=== PATIENT | female | born 1940 | race Caucasian/White ===

== ENCOUNTER 2020-08-05 14:01 | Inpatient (IN) | payer MEDICARE, SELFPAY ==
[2020-08-05] VITALS (20 sets, daily range): BP systolic 121–197; BP diastolic 66–96; PULSE 71–101; RESP 14–20; TEMP 36.4–37.2; O2SAT 96–100
--- NOTE | ~2020-08-05 | US_ITS ---
US right upper quadrant INDICATION: Limited liver function tests. PROCEDURE: Realtime right upper abdominal ultrasound. COMPARISON: No prior studies for comparison. FINDINGS: The pancreas is normal without focal mass or pancreatic ductal dilation. Liver echotexture is normal without focal mass or intrahepatic biliary dilatation. There is normal directional flow i n the portal vein. Multiple gallstones. No gallbladder wall thickening or pericholecystic fluid. Common bile duct measu res 6 mm. No sonographic Rai's sign. IMPRESSION: 1: Cholelithiasis. Reviewed, dictated and finalized at location A. SPECIALIST IMPRESSION: 1: Cholelithiasis.
--- NOTE | ~2020-08-05 | XR_ITS ---
EXAMINATION: XR chest 1V portable DATE: 08/05/2020 14:35 INDICATION: Shortness of breath and right-sided chest pain TECHNIQUE: frontal view of the chest was obtained. COMPARISON: Chest radiograph dated 07/02/2016 FINDINGS: Subtle patchy airspace opacities in the right mid and left lower lung zones with more streaky opaciti es in the left mid and right lower lung zones. This includes chronic linear atelectasis/scarring at t he lingula. No pleural effusion or pneumothorax. The cardiomediastinal silhouette is normal. Mild S-s haped thoracolumbar scoliosis with moderate to severe spondylosis. IMPRESSION: 1. Mild scattered opacities in the bilateral mid and lower lung zones which could represent pneumonia , atelectasis/scarring, mild pulmonary edema or combination thereof. Reviewed, dictated and finalized at [facility]. OR DESIGNER/ART DIRECTOR IMPRESSION: 1. Mild scattered opacities in the bilateral mid and lower lung zones which cou ld represent pneumonia, atelectasis/scarring, mild pulmonary edema or combinati on thereof.
--- NOTE | 2020-08-05 14:10 | ECG_ITS ---
Measurements Intervals [place] Rate: 91 P: 61 [place]: 182 QRS: -29 QRSD: 101 T: 62 QT: 349 QTc: 431 Interpretive Statements SINUS RHYTHM POSSIBLE LEFT ATRIAL ENLARGEMENT LOW QRS VOLTAGE IN PRECORDIAL LEADS DELAYED PRECORDIAL R/S TRANSITION ANTEROSEPTAL ST ELEVATION MYOCARDIAL INJURY- ACUTE BASELINE WANDER- II, AVL ABNORMAL ECG Electronically Signed On 08-05-2020 17:20:59 CLEANER AND D[employer]ER by Yahir Lord D.O.
--- NOTE | 2020-08-05 14:35 | PC.NURSE ---
Placed patient on 2 Li NC at this time for comfort, NS 1 Li fluid bolus started per stemi orders. Heparin bolus give at 4000 units IVP, verbal order Dr. Xiao. ASA 325 mg given at this time.
--- NOTE | 2020-08-05 14:35 | ED.GENADULT ---
HPI - General Adult General Chief complaint: Chest Pain Stated complaint: possible pneumonia , chest pain Time Seen by Provider: 08/05/20 14:24 History of Present Illness HPI narrative: Patient is a 80-year-old female who presents ER with right-sided chest heaviness. Began around 11 PM last night. When she woke up today she noticed that the discomfort was heavier. It has been persistent throughout the day. She denies any sweats/nausea/vomiting. Pain was 8/10 upon arrival here. No previous CA. Related Data Home Medications Medication Instructions Recorded Confirmed glimepiride mg 08/05/20 quinapril mg 08/05/20 sitagliptin [Januvia] mg 08/05/20 solifenacin mg PO 08/05/20 Allergies Allergy/AdvReac Type Severity Reaction Status Date / Time codeine Allergy Mild FELT LIKE Verified 08/05/20 14:18 SHE HAD CREEPY-CRAWLIES Sulfa (Sulfonamide Allergy Unknown RASH Verified 08/05/20 14:18 Antibiotics) Review of Systems Review of Systems: All systems reviewed & are unremarkable except as noted in HPI and below Constitutional: Constitutional: Denies chills, Denies fever(s) and Denies weakness ENT: Denies nasal congestion and Denies sore throat Cardiovascular: Cardiovascular: Reports chest pain, Denies rapid heart rate and Denies radiating jaw, neck or arm pain Respiratory: Respiratory: Denies cough, Denies dyspnea and Denies wheezing Gastrointestinal: Gastrointestinal: Denies abdominal pain, Denies diarrhea and Denies nausea PMFSH Past Medical History Medical History (Updated 08/05/20 @ 23:23 by Izaiah Xiao MD) Breast cancer Diabetes Hypertension Surgical History Surgical History (Updated 08/05/20 @ 14:52 by Izaiah Xiao MD) H/O lumpectomy History of appendectomy Family History Family History (Updated 08/05/20 @ 19:40 by Gianna Garcia RN) Sibling Hypertension Father Hypertension Mother Hypertension Social History Social History (Updated 08/05/20 @ 14:52 by Izaiah Xiao MD) Smoking status: Never smoker Alcohol intake: never Substance use: never Gender identity (if verbalized by the patient): Female Spiritual care concerns: No Exam Narrative: Exam Narrative: GENERAL: Well-appearing, well-nourished, and in no acute distress. HEAD: Normocephalic, atraumatic. EYES: PERRL and EOMI. CHEST: Clear to auscultation. No respiratory distress. HEART: Regular rate and rhythm. Normal peripheral pulses. ABDOMEN: Soft, nontender, nondistended. EXTREMITIES: Normal range of motion. No edema. SKIN: Warm, dry, no rash. NEURO: Alert and oriented x3. PSYCH: Normal mood and affect. Course Reevaluation(s) Reevaluation #1: STEMI activated, discussed with Dr. Tong who will take pt to agriculture laboratory technician. Date: 08/05/20 Time: 14:51 Reevaluation #2: Dr. Tong arrived, cath team not here, [facility] was not sent out by secretary of police. That has been corrected. Date: 08/05/20 Time: 15:57 Vital Signs Vital signs: Vital Signs Temperature 97.5 F L 08/05/20 14:08 Pulse Rate 93 08/05/20 14:08 Respiratory Rate 14 08/05/20 14:08 Blood Pressure 197/96 H 08/05/20 14:08 Pulse Oximetry 99 08/05/20 14:08 Temperature 98.9 F 08/05/20 19:50 Pulse Rate 84 08/05/20 21:20 Respiratory Rate 16 08/05/20 21:20 Blood Pressure 121/86 08/05/20 21:20 Pulse Oximetry 98 08/05/20 21:20 Medical Decision Making Vital Signs Vital Signs: Vital Signs Temperature 97.5 F L 08/05/20 14:08 Pulse Rate 93 08/05/20 14:08 Respiratory Rate 14 08/05/20 14:08 Blood Pressure 197/96 H 08/05/20 14:08 Pulse Oximetry 99 08/05/20 14:08 Temperature 98.9 F 08/05/20 19:50 Pulse Rate 84 08/05/20 21:20 Respiratory Rate 16 08/05/20 21:20 Blood Pressure 121/86 08/05/20 21:20 Pulse Oximetry 98 08/05/20 21:20 Lab Data Result diagrams: 08/05/20 14:30 08/05/20 14:30 Labs: Lab Results 08/05/20
[2020-08-05 14:44] LABS: Basophils Percent Auto 0.2 % (0.2-1.2); Eosinophils Percent Auto 0.2 % (0-4.4); Hematocrit 46.4 % (37.0-47.0); Immature Granulocyte Absolute 0.02 K/mm3 (0.00-0.031); Immature Granulocyte Percent A 0.2 % (0-0.5); Lymphocytes Absolute Auto 0.93 K/mm3 (0.9-3.2); Lymphocytes Percent Auto 11.1 % (18.3-44.2); Mean Corpuscular HGB Conc 32.3 g/dl (32-36); Mean Corpuscular Hemoglobin 29.6 pg (26-34); Mean Corpuscular Volume 91.5 fl (80-100); Mean Platelet Volume 12.7 fl (7.4-10.4); Monocytes Absolute Auto 0.2 K/mm3 (0.1-0.6); Monocytes Percent Auto 2.3 % (2.6-8.5); Neutrophils Absolute Auto 7.2 K/mm3 (1.3-6.7); Platelet Count Result 129 k/mm3 (150-375); Red Blood Count 5.07 M/mm3 (4.2-5.4); Red Cell Distribution Width 12.3 % (11.5-14.5); White Blood Count 8.4 K/mm3 (4.5-10.0)
[2020-08-05] MEDS: ASPIRIN 81 MG CHEWABLE TABLET 324 MG PO (14:53)
[2020-08-05 14:54] LABS: Cholesterol 188 mg/dL (0-200); HDL Direct 58 mg/dL; Triglycerides 139 mg/dL (<150)
--- NOTE | 2020-08-05 14:54 | PC.NURSE ---
Patient states after dose of nitro SL 0.4 chest pain decreased from a 6/10 to 2/10.
[2020-08-05 14:56] LABS: Anion Gap 11 mmol/L (8-16); Blood Urea Nitrogen 21 mg/dL (7-17); Calcium 9.4 mg/dL (8.4-10.2); Carbon Dioxide 29 mmol/L (22-30); Chloride 100 mmol/L (98-107); Estimated Glomerular Filt Rate 48; Glucose 309 mg/dL (65-105); Potassium 4.1 mmol/L (3.4-5.0); Sodium 140 mmol/L (137-145)
[2020-08-05 14:58] LABS: INR 0.9; Prothrombin Time 12.9 Seconds (11.1-14.7)
[2020-08-05 14:59] LABS: Partial Thromboplastin Time 24.5 SECONDS (22.3-36.8)
[2020-08-05 15:05] LABS: LDL Cholesterol Direct 102 mg/dL
[2020-08-05 15:10] LABS: Troponin I 0.359 ng/mL (0.000-0.034)
[2020-08-05 15:41] LABS: Lactic Acid Reflex 2.7 mmol/L (0.7-2.1)
--- NOTE | 2020-08-05 15:54 | PM.IMHP ---
H&P: HPI History of Present Illness Date/Time: 08/05/20 15:54 Chief complaint: Stemi Narrative: Tonya Scherer is a 80 year old female without previous history of cardiovascular problems who is being seen in the emergency room in the setting of acute ST-elevation [place]. The patient was in her usual state of relatively good health when last evening about 11:00 p.m. or so as she had just was preparing to go to bed she started to experience chest pain. She describes this as a pressure-like sensation and the right precordium just lateral to the right side of the sternum and the discomfort was [id number] in intensity. She was not feeling ill in any other way denies any shortness of breath nausea or vomiting this morning she got up from bed in the symptoms were still there and she was a little bit diaphoretic she therefore was a bit more concerned. Unfortunately she stated home until this afternoon and finally came into the emergency room where her ECG appears to show evidence of anterior wall infarction. Her symptoms were described over the phone to me by the ER doctor is still quite mild. When I heard about the case it seemed like a very late presentation, about 15 hours into the event despite this very late presentation and mild persistent symptoms bring her to the prestressed concrete laborer for emergency angiography and PCI was recommended and I was summoned for this purpose. I am seeing her in the emergency room as the prestressed concrete laborer is being prepared. She appears to be in no significant distress in fact when I came in to see her she was talking on the cell phone to her family members who are not here at this time. Her past medical history is remarkable for hypertension and resection of breast cancer. Review of Systems Review of Systems: All systems reviewed & are unremarkable except as noted in HPI and below Constitutional: Constitutional: Reports no additional constitutional complaints Eyes: Eyes: Reports no additional eye complaints ENT: Reports system reviewed and no additional complaints, except as documented Cardiovascular: Cardiovascular: Reports as per HPI Respiratory: Respiratory: Reports no additional respiratory complaints Gastrointestinal: Gastrointestinal: Reports no additional gastrointestinal complaints Musculoskeletal: Musculoskeletal: Reports no additional musculoskeletal complaints Integumentary/Breasts: Skin/Breast: Reports as per HPI Neurologic: Reports system reviewed and no additional complaints, except as documented [facility] Past Medical History Medical History (Updated 08/05/20 @ 14:51 by Izaiah Xiao MD) Breast cancer Diabetes Hypertension Surgical History Surgical History (Updated 08/05/20 @ 14:52 by Izaiah Xiao MD) H/O lumpectomy History of appendectomy Social History Social History (Updated 08/05/20 @ 14:52 by Izaiah Xiao MD) Smoking status: Never smoker Meds Home Medications and Allergies Home Medications Medication Instructions Recorded Confirmed Type glimepiride mg 08/05/20 History quinapril mg 08/05/20 History sitagliptin [Januvia] mg 08/05/20 History solifenacin mg PO 08/05/20 History Allergies Allergy/AdvReac Type Severity Reaction Status Date / Time codeine Allergy Mild FELT LIKE Verified 08/05/20 14:18 SHE HAD CREEPY-CRAWLIES Sulfa (Sulfonamide Allergy Unknown RASH Verified 08/05/20 14:18 Antibiotics) Vital Signs Vital Signs - 24 hr 08/05/20 14:08 08/05/20 14:20 08/05/20 14:51 Temperature 36.4 C L Pulse Rate 93 97 96 Respiratory Rate 14 14 Blood Pressure 197/96 H 168/87 H Pulse Oximetry 99 100 08/05/20 15:02 08/05/20 15:16 Temperature Pulse Rate 101 H 100 Respiratory Rate 16 18 Blood Pressure 158/94 H 169/89 H Pulse Oximetry 100 100 H&P: Results Labs Labs: Short CBC 08/05/20 Range/Units 14:30 WBC 8.4 (4.5-10.0) K/mm3 Hgb 15.0 (12.0-15.0) g/dL Hct 46.4 (37.0-47.0) % Plt Count 129 L
[2020-08-05 16:04] LABS: Glucose Point of Care 259 (65-105)
--- NOTE | 2020-08-05 16:20 | PC.NURSE ---
Patient transferred to cardiac collaborative physician at this time. Report given to collaborative physician nurses at bedside.
--- NOTE | 2020-08-05 17:28 | WPDCARDPROC ---
Cardiac Cath Procedure Note Date of procedure:: 08/05/20 Performing physician:: Clifford Tong MD Indication:: acute myocardial infarction Brief clinical history:: this is an 80-year-old woman who presented to the hospital with chest pain that began about 15 hours prior to presentation this evening. Her electrocardiogram is diagnostic of an acute anterior ST-elevation [place]. Previous medical history is remarkable for hypertension and breast cancer. Procedure Procedure performed:: Emergency coronary angiography emergency PCI to LAD left ventriculography Angio-Seal to right femoral artery Sedation/Medication given:: fentanyl 50 mg Versed 2 mg case start time 4:35 p.m. case end time 17 18 hours sedation provided by Violeta Fontanez RN, trained observer Access site:: right femoral artery Estimated blood loss:: 15-20 cc Procedure note:: patient was brought to the cardiac catheterization lab in the emergency setting. The right femoral triangle was prepared and draped in the usual fashion. Anesthesia was provided with 1% lidocaine infiltrated locally. Using the modified Seldinger technique I punctured the femoral artery and placed a 6 [place] vascular sheath. After this I used a 5 [place] JR4 catheter to engage inject the right coronary artery. After this a 5 [place] FL4 catheter was used to engage inject the left coronary artery. This any angiograms were then reviewed and the PCI of the proximal LAD was recommended and carried out as detailed below. Prior to PCI the patient received 180 mg oral Brilinta and was started on intravenous Angiomax bolus and infusion for systemic anticoagulation. The intervention was then completed and a 5 [place] angled pigtail catheter was used to perform a left ventriculogram in the RHODES projection as well as documented left-sided hemodynamics. The case was then terminated angiogram was done of the femoral artery through the sheath after which a 6 [place] Angio-Seal device was deployed at the site of the arterial puncture with a good hemostatic result. Procedure was well tolerated there were no complications she left the labeling strategist with no evidence of a groin hematoma. Findings:: Hemodynamics: Central aortic pressure is 166/74. Left ventricle 166/4 end-diastolic pressure 32. There is no pullback gradient across the aortic valve. Left ventriculogram: Left ventricle is mildly enlarged the anterior wall is akinetic the apex is dyskinetic the global ejection fraction is in the vicinity of 35%. The left main coronary artery is nicely patent the LAD is a medium caliber vessel that is 100% occluded at its origin there is a small stump of the LAD visible off the left main the remainder of the vessels 100% occluded with no antegrade filling circumflex is a large caliber vessel giving rise to a large proximal OM branch and a more distal AV groove and posterior branch. There was no significant circumflex disease. The large OM branch has a stenosis of about 50% proximally. Right coronary artery is large in caliber and dominant to the posterior circulation it is extremely tortuous but angiographically free of disease. Intervention: The left coronary artery was engaged using a 6 [place] CLS 3.5 guiding catheter. I used a 0.014 BMW guidewire to probe the occlusion and penetrate the occlusion into the distal LAD. Following this I used a 2.5 x 15 mm emerge PTCA balloon to pre dilate the lesion. Once flow was restored in the LAD was clear that the guidewire was in a septal branch in the mid LAD. I attempted to redirect this wire into the LAD proper which was not successful for that reason I used a 0.014 luge wire while the BMW was in the septal and directed the luge wire into the distal LAD. The BMW wire was then withdrawn. there was a angiographic evidence of spasm in this area of the vessel which was resolved with 200 mics of IC nitroglycerin. Following this I finish the intervention by ton
--- NOTE | 2020-08-05 17:47 | PC.NURSE ---
This patient, Tonya Scherer, was admitted to IMU Room 232-01. Patient/family oriented to hospital policies and general routines including ID bracelet, bed and alarms, visiting hours, pain management, procedures, bathroom and other care routines, personal items, smoking policy, room service/diet, and visiting hours. Information on how to activate the Rapid Response Team has been discussed. Patient/Family are encouraged to report perceived risks to care and to ask questions if they do not understand what they are told or what they should do.
[2020-08-05 18:28] LABS: Reflex Lactic Acid Yes or No Add Lactic
[2020-08-05] MEDS: SODIUM CHLORIDE 0.9% IV 1,000 ML 125 ML IV CONT (18:28)
[2020-08-05 18:33] LABS: Cholesterol 161 mg/dL (0-200); HDL Direct 47 mg/dL; Triglycerides 118 mg/dL (<150)
[2020-08-05 18:33] LABS: Glucose Point of Care 228 (65-105)
[2020-08-05 18:44] LABS: LDL Cholesterol Direct 89 mg/dL
[2020-08-05 18:47] LABS: Troponin I > 80.000 ng/mL (0.000-0.034)
--- NOTE | 2020-08-05 20:48 | PC.NURSE ---
Patient arrived to floor with cardiac cath staff at 1747 post cardiac-cath. Dressing to right groin assessed, and found to be dry and intact, with a small palpable hematoma. Right pedal pulse palpated +1, toes warm. Patient denies chest pain. When groin assessed at 1845 dressing was found to be saturated, and pressure was applied. Dr. Brennan notified after pressure was unsuccessful, at approximately 1900. Order obtained for Femstop to be applied by cardiac cath staff, and for patient to remain on bedrest until seen by cardiology the following day, 08/06/20. Patient remained alert x3, without complaints of chest pain or shortness of breath. Will continue to monitor closely.
[2020-08-05] MEDS: carvediloL 6.25 MG TABLET PO (21:04)
[2020-08-05] MEDS: TICAGRELOR 90 MG TABLET PO (21:04)
[2020-08-05 22:16] LABS: Troponin I > 80.000 ng/mL (0.000-0.034)
[2020-08-05 22:57] LABS: Glucose Point of Care 200 (65-105)
[2020-08-05] MEDS: MORPHINE SULFATE (*CRX) 2 MG/ML INJ IV PUSH (23:22)
[2020-08-06] VITALS (19 sets, daily range): BP systolic 104–146; BP diastolic 42–67; PULSE 67–84; RESP 14–99; TEMP 36.2–36.9; O2SAT 97–100
[2020-08-06] MEDS: ZOLPIDEM TARTRATE (*CRX) 5 MG TABLET 10 MG PO (00:25)
--- NOTE | 2020-08-06 05:11 | ECG_ITS ---
Measurements Intervals [place] Rate: 69 P: 51 [place]: 175 QRS: -1 QRSD: 98 T: 116 QT: 409 QTc: 441 Interpretive Statements SINUS RHYTHM BORDERLINE R WAVE PROGRESSION, ANTERIOR LEADS ANTERIOR MYOCARDIAL INFARCT, PROBABLY RECENT ABNORMAL ECG Electronically Signed On 08-06-2020 11:00:22 MANAGER OF EXHIBITIONS AND COLLECTIONS by Yahir Lord D.O.
--- NOTE | 2020-08-06 07:20 | PM.PNCARD ---
Progress Note: A&P Additional Plan 80-year-old female with: Acute anterior wall myocardial infarction, late presentation. Underwent angiographically successful PCI of total occlusion of the proximal LAD using the Orsiro drug-eluting stent with a good angiographic result. Patient does have modest non flow-limiting disease of the large OM branch of the circumflex as well. Right coronary artery looked normal. Expect the patient have a sizable anterior wall scar as she presented late, 15-16 hours into the event by history. Will continue dual anti-platelet therapy today continue carvedilol lisinopril and rosuvastatin. Patient will come off of bed rest and be ambulated this morning. Told her to expect to be in the hospital until at least Thursday because of the large infarction Clifford Tong MD [facility] Subjective Date/time seen: Date of service:08/06/20 07:20 Interval history: 80-year-old female with: Acute anterior wall myocardial infarction, late presentation and successful PCI of proximal LAD occlusion. Expect patient will have a large infarction because of late presentation clinically stable is morning no chest pain no shortness of breath. Has a Femstop on the right femoral puncture site because of oozing last evening. Exam Const: General: comfortable and no acute distress HENMT: Mouth: Yes moist mucous membranes Eyes: Sclera: sclerae normal Pupils: Equal, round and reactive pupils present Neck: Neck: supple and no JVD Thyroid: thyroid normal Other: No carotid bruits normal pulses Resp: Effort & Inspection: normal respiratory effort Auscultation: clear to auscultation bilaterally Cardio: Rate: regular rate Rhythm: regular rhythm Other: no murmur no gallop no rub GI: GI Palp: Yes Soft to palpation Auscultation: normal bowel sounds Skin: General skin exam: normal color Neuro: Cognition (Neuro): normal cognition Extrem: General: normal to inspection Objective Data Vital Signs Vital Signs: Vital Signs - 24 hr 08/05/20 14:08 08/05/20 14:20 08/05/20 14:51 Temperature 36.4 C L Pulse Rate 93 97 96 Respiratory Rate 14 14 Blood Pressure 197/96 H 168/87 H Pulse Oximetry 99 100 08/05/20 15:02 08/05/20 15:16 08/05/20 16:12 Temperature Pulse Rate 101 H 100 98 Respiratory Rate 16 18 16 Blood Pressure 158/94 H 169/89 H 177/82 H Pulse Oximetry 100 100 100 08/05/20 17:50 08/05/20 18:06 08/05/20 18:31 Temperature Pulse Rate 91 91 87 Respiratory Rate 20 20 20 Blood Pressure 146/67 H 132/67 Pulse Oximetry 96 96 96 08/05/20 18:45 08/05/20 19:05 08/05/20 19:20 Temperature 36.9 C Pulse Rate 86 83 88 Respiratory Rate 20 18 18 Blood Pressure 142/67 H 153/87 H 151/77 H Pulse Oximetry 96 98 98 08/05/20 19:50 08/05/20 20:00 08/05/20 20:20 Temperature 37.2 C Pulse Rate 85 82 86 Respiratory Rate 18 17 Blood Pressure 163/73 H 141/66 H Pulse Oximetry 99 99 08/05/20 21:04 08/05/20 21:20 08/05/20 22:00 Temperature Pulse Rate 83 84 88 Respiratory Rate 16 Blood Pressure 121/86 Pulse Oximetry 98 08/05/20 22:20 08/05/20 23:20 08/06/20 00:00 Temperature 36.3 C L Pulse Rate 72 71 69 Respiratory Rate 16 16 16 Blood Pressure 146/87 H 121/87 104/67 Pulse Oximetry 98 97 98 08/06/20 00:12 08/06/20 00:20 08/06/20 02:00 Temperature 36.3 C L Pulse Rate 70 71 76 Respiratory Rate 16 16 16 Blood Pressure 104/67 144/64 H 121/59 L Pulse Oximetry 98 97 98 08/06/20 03:06 08/06/20 04:00 08/06/20 06:00 Temperature 36.2 C L Pulse Rate 78 74 73 Respiratory Rate 14 99 H 16 Blood Pressure 146/66 H 135/57 L 144/59 H Pulse Oximetry 98 99 100 Intake/Output Intake/Output: Intake & Output 08/03/20 08/04/20 08/05/20 08/06/20 23:59 23:59 23:59 23:59 Output Total 200 950 Balance -200 -950 Meds/Results Medications: Active Medications Generic Name Dose Route Start Last Admin Trade Name Freq PRN Reason Stop Dose Admin Aspir
--- NOTE | 2020-08-06 08:28 | WPDCNINT ---
Psychotherapist Social Worker Consult Note Consult date: 08/06/20 HPI: Tonya Scherer is a 80 year old female [facility] Past Medical History Medical History (Updated 08/05/20 @ 23:23 by Izaiah Xiao MD) Breast cancer Diabetes Hypertension Surgical History Surgical History (Updated 08/05/20 @ 14:52 by Izaiah Xiao MD) H/O lumpectomy History of appendectomy Family History Family History (Updated 08/05/20 @ 19:40 by Gianna Garcia RN) Sibling Hypertension Father Hypertension Mother Hypertension Social History Social History (Updated 08/05/20 @ 14:52 by Izaiah Xiao MD) Smoking status: Never smoker Alcohol intake: never Substance use: never Gender identity (if verbalized by the patient): Female Spiritual care concerns: No Meds Home Medications and Allergies Home Medications Medication Instructions Recorded Confirmed Type glimepiride mg 08/05/20 History quinapril mg 08/05/20 History sitagliptin [Januvia] mg 08/05/20 History solifenacin mg PO 08/05/20 History Allergies Allergy/AdvReac Type Severity Reaction Status Date / Time codeine Allergy Mild FELT LIKE Verified 08/05/20 14:18 SHE HAD CREEPY-CRAWLIES Sulfa (Sulfonamide Allergy Unknown RASH Verified 08/05/20 14:18 Antibiotics) Vital Signs Vital Signs - 24 hr 08/05/20 14:08 08/05/20 14:20 08/05/20 14:51 Temperature 97.5 F L Pulse Rate 93 97 96 Respiratory Rate 14 14 Blood Pressure 197/96 H 168/87 H Pulse Oximetry 99 100 08/05/20 15:02 08/05/20 15:16 08/05/20 16:12 Temperature Pulse Rate 101 H 100 98 Respiratory Rate 16 18 16 Blood Pressure 158/94 H 169/89 H 177/82 H Pulse Oximetry 100 100 100 08/05/20 17:50 08/05/20 18:06 08/05/20 18:31 Temperature Pulse Rate 91 91 87 Respiratory Rate 20 20 20 Blood Pressure 146/67 H 132/67 Pulse Oximetry 96 96 96 08/05/20 18:45 08/05/20 19:05 08/05/20 19:20 Temperature 98.5 F Pulse Rate 86 83 88 Respiratory Rate 20 18 18 Blood Pressure 142/67 H 153/87 H 151/77 H Pulse Oximetry 96 98 98 08/05/20 19:50 08/05/20 20:00 08/05/20 20:20 Temperature 98.9 F Pulse Rate 85 82 86 Respiratory Rate 18 17 Blood Pressure 163/73 H 141/66 H Pulse Oximetry 99 99 08/05/20 21:04 08/05/20 21:20 08/05/20 22:00 Temperature Pulse Rate 83 84 88 Respiratory Rate 16 Blood Pressure 121/86 Pulse Oximetry 98 08/05/20 22:20 08/05/20 23:20 08/06/20 00:00 Temperature 97.3 F L Pulse Rate 72 71 69 Respiratory Rate 16 16 16 Blood Pressure 146/87 H 121/87 104/67 Pulse Oximetry 98 97 98 08/06/20 00:12 08/06/20 00:20 08/06/20 02:00 Temperature 97.3 F L Pulse Rate 70 71 76 Respiratory Rate 16 16 16 Blood Pressure 104/67 144/64 H 121/59 L Pulse Oximetry 98 97 98 08/06/20 03:06 08/06/20 04:00 08/06/20 06:00 Temperature 97.1 F L Pulse Rate 78 74 73 Respiratory Rate 14 99 H 16 Blood Pressure 146/66 H 135/57 L 144/59 H Pulse Oximetry 98 99 100 Results Labs CBC & Chem 7: 08/05/20 14:30 08/05/20 14:30 Labs: Short CBC 08/05/20 Range/Units 14:30 WBC 8.4 (4.5-10.0) K/mm3 Hgb 15.0 (12.0-15.0) g/dL Hct 46.4 (37.0-47.0) % Plt Count 129 L (150-375) k/mm3 BMP 08/05/20 14:30 Sodium 140 Potassium 4.1 Chloride 100 Carbon Dioxide 29 BUN 21 H Creatinine 1.10 H Glucose 309 H Calcium 9.4 Cardiac Enzymes 08/05/20 08/05/20 08/05/20 Range/Units 14:30 18:16 21:32 Troponin I 0.359 H* > 80.000 H* D > 80.000 H* (0.000-0.034) ng/mL
--- NOTE | 2020-08-06 08:28 | WPDCNINT ---
Assessment and Plan Assessment and plan (1) ST elevation (STEMI) myocardial infarction: Code(s): I21.3 - ST elevation (STEMI) myocardial infarction of unspecified site <Nichelle Colon PA-C - Last Filed: 08/06/20 09:44> Status: Acute <Nichelle Colon PA-C - Last Filed: 08/06/20 09:44> Assessment and Plan: Status post cardiac catheterization 08/05/20 -stenting to the proximal LAD -large area of anterior apical akinesia and global ejection fraction around 35% -chest x-ray noted, likely pulmonary edema. Do not suspect infection at this time. Normal white count, no cough -insertion site right femoral artery with femstop overnight due to oozing now with statseal. -overnight she had slight reoccurance of chest pressure but not like it was prior to coming into the hospital -tele reviewed, occasional PVCs. Normal sinus rhythm -lipid panel reviewed, LDL 89. -continue carvedilol, lisinopril,rosvustatin, spironolactone, and aspirin <Nichelle Colon PA-C - Last Filed: 08/06/20 09:44> (2) Diabetes: Code(s): E11.9 - Type 2 diabetes mellitus without complications <Nichelle Colon PA-C - Last Filed: 08/06/20 09:44> Status: Inactive <Nichelle Colon PA-C - Last Filed: 08/06/20 09:44> Assessment and Plan: Last glucose 200 -will continue sliding scale insulin -reports last A1c <7 -draw A1c, consider Lantus if she continues to run high -continue to hold home oral diabetes medications (on glipizide 2 mg and 100 mg of Januvia at home) <Nichelle Colon PA-C - Last Filed: 08/06/20 09:44> (3) Hypertension: Code(s): I10 - Essential (primary) hypertension <Nichelle Colon PA-C - Last Filed: 08/06/20 09:44> Status: Inactive <Nichelle Colon PA-C - Last Filed: 08/06/20 09:44> Assessment and Plan: Last blood pressure 144/59 -continue carvedilol, lisinopril, and spironolactone at this time <Nichelle Colon PA-C - Last Filed: 08/06/20 09:44> (4) Breast cancer: Code(s): C50.919 - Malignant neoplasm of unspecified site of unspecified female breast <Nichelle Colon PA-C - Last Filed: 08/06/20 09:44> Status: Acute <Nichelle Colon PA-C - Last Filed: 08/06/20 09:44> Assessment and Plan: Treated in 2018, no known recurrence at this time -follows and Dr. 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 Greene <Nichelle Colon PA-C - Last Filed: 08/06/20 09:44> I have seen and evaluated the patient and discussed the care with WILBER Deshpande. I agree with the findings and plan as documented the note above <Candice Greene MD - Last Filed: 09/11/20 14:16> Portable Track Crew Chief Consult Note Consult date: 08/06/20 <Nichelle Colon PA-C - Last Filed: 08/06/20 09:44> 09/11/20 <Candice Greene MD - Last Filed: 09/11/20 14:16> Time Seen: 09:00 <Nichelle Colon PA-C - Last Filed: 08/06/20 09:44> HPI: Tonya Scherer is a 80 year old female with a past medical history of diabetes and hypertension who presented emergency room with chest pressure. The patient states the pressure started on Thursday but was mild and came and went. She said it got worse on Thursday and she noticed it more when she was pulling the trash cans to her house. On Thursday, she said the pressure would not go away and she noticed 1 episode of diaphoresis. She never had any jaw pain or arm pain with this. She did have slight shortness of breath but nothing significant. She denies cough. She says she has diarrhea on and off but has not had any recently and denies dysuria.
[2020-08-06 08:39] LABS: Glucose Point of Care 231 (65-105)
[2020-08-06] MEDS: TICAGRELOR 90 MG TABLET PO ×2 (09:05→20:54)
[2020-08-06] MEDS: PANTOPRAZOLE 40 MG TABLET PO (09:05)
[2020-08-06] MEDS: ROSUVASTATIN 10 MG TABLET PO (09:05)
[2020-08-06] MEDS: carvediloL 6.25 MG TABLET PO ×2 (09:06→20:54)
[2020-08-06] MEDS: INSULIN ASPART (*BKC) 100 UNITS/ML SUB-Q ×2 (09:06→18:42)
[2020-08-06] MEDS: lisinopriL 10 MG TABLET PO (09:06)
[2020-08-06] MEDS: SPIRONOLACTONE 25 MG TABLET PO (09:06)
[2020-08-06] MEDS: ASPIRIN 81 MG CHEWABLE TABLET PO (09:08)
[2020-08-06 10:03] LABS: Hematocrit 40.7 % (37.0-47.0); Hemoglobin 13.3 g/dL (12.0-15.0); Mean Corpuscular HGB Conc 32.7 g/dl (32-36); Mean Corpuscular Hemoglobin 29.4 pg (26-34); Mean Corpuscular Volume 89.8 fl (80-100); Mean Platelet Volume 12.4 fl (7.4-10.4); Platelet Count Result 107 k/mm3 (150-375); Red Blood Count 4.53 M/mm3 (4.2-5.4); Red Cell Distribution Width 12.3 % (11.5-14.5); White Blood Count 9.1 K/mm3 (4.5-10.0)
[2020-08-06 10:15] LABS: Alanine Aminotransferase 50 U/L (4-35); Albumin Level 3.4 g/dL (3.5-5.1); Alkaline Phosphatase 73 U/L (38-126); Anion Gap 10 mmol/L (8-16); Aspartate Amino Transferase 321 U/L (14-36); Blood Urea Nitrogen 18 mg/dL (7-17); Calcium 8.5 mg/dL (8.4-10.2); Carbon Dioxide 20 mmol/L (22-30); Chloride 106 mmol/L (98-107); Estimated Glomerular Filt Rate > 60; Glucose 211 mg/dL (65-105); Potassium 3.9 mmol/L (3.4-5.0); Sodium 136 mmol/L (137-145)
[2020-08-06 10:18] LABS: Hemoglobin A1C 6.2 % (<5.7)
[2020-08-06 11:59] LABS: Glucose Point of Care 193 (65-105)
--- NOTE | 2020-08-06 12:29 | PM.IMCN ---
Assessment and Plan Assessment and plan (1) ST elevation (STEMI) myocardial infarction: Code(s): I21.3 - ST elevation (STEMI) myocardial infarction of unspecified site Status: Acute Assessment and Plan: S/p catheterization. Supportive care Follow Cardiology recs. (2) Breast cancer: Code(s): C50.919 - Malignant neoplasm of unspecified site of unspecified female breast Status: Acute Assessment and Plan: On remission Follow up in the outpatient setting. (3) T2DM (type 2 diabetes mellitus): Code(s): E11.9 - Type 2 diabetes mellitus without complications Status: Acute Assessment and Plan: Calorie restricted diet Accucheks ACHS ISS as needed Holding oral hypoglycemics. (4) HTN (hypertension): Code(s): I10 - Essential (primary) hypertension Status: Acute Assessment and Plan: Stable Restart home meds Continue to monitor. HPI Data of Consult Consult date: 08/06/20 Requesting Physician: Clifford Tong MD Primary Care Provider: Ry Cruz, Consult Narrative Narrative: Tonya Scherer is a 80 year old female with PMHx significant for T2DM, diet and oral hypoglycemics controlled, HTN. Patient presented to ED due to ongoing chest pain that started the day before, localized to the epigastric area, states like and elephant sitting on my chest, patient had been doing yard work earlier in the day, she has been in her usual state of health prior to this, no fevers, no rigors, no chills, no n/v/abdominal pain, no leg swelling, no claudication, no pnd, no orthopnea, no chest pain with activity. Pain did not go away and decide to come to ED. Patient was found to have anterolateral acute CT and was rushed to research laboratory manager now she is s/p drug eluting stent placement. Review of Systems Review of Systems: Narrative: Persistent chest pain. Constitutional: Comments: no fevers, no rigors, no chills. Eyes: Comments: No vision changes. ENT: Comments: no ears ache, no throat pain, no nasal discharge or congestion. Cardiovascular: Comments: Chest pain. Respiratory: Comments: no cough, no sputum production. Gastrointestinal: Comments: no n/v/abdominal pain. Musculoskeletal: Comments: No muscle aches or pain. Integumentary/Breasts: Comments: no rashes. Neurologic: Comments: no sensory motor deficit. Hematologic/Lymphatic: Comments: No LAP. PMFSH Past Medical History Medical History Breast cancer Diabetes Hypertension Overactive bladder Surgical History Surgical History (Updated 08/05/20 @ 14:52 by Izaiah Xiao MD) H/O lumpectomy History of appendectomy Family History Family History (Updated 08/05/20 @ 19:40 by Gianna Garcia RN) Sibling Hypertension Father Hypertension Mother Hypertension Social History Social History (Updated 08/06/20 @ 09:42 by Nichelle Colon PA-C) Social History: Patient is a lifelong nonsmoker. She denies drug or alcohol use. Her surrogate decision maker would be her daughter Jaz Saravia if needed Smoking status: Never smoker Alcohol intake: never Substance use: never Gender identity (if verbalized by the patient): Female Spiritual care concerns: No Meds Home Medications and Allergies Home Medications Medication Instructions Recorded Confirmed Type glimepiride 2 mg PO DAILY 08/05/20 08/06/20 History quinapril 40 mg PO DAILY 08/05/20 08/06/20 History sitagliptin [Januvia] 100 mg PO DAILY 08/05/20 08/06/20 History solifenacin 10 mg PO DAILY 08/05/20 08/06/20 History Allergies Allergy/AdvReac Type Severity Reaction Status Date / Time codeine Allergy Mild FELT LIKE Verified 08/05/20 14:18 SHE HAD CREEPY-CRAWLIES Sulfa (Sulfonamide Allergy Unknown RASH Verified 08/05/20 14:18 Antibiotics) Vital Signs Vital Signs - 24 hr 08/05/20 14:08 08/05/20 14:20 08/05/20 14:51 Tem
[2020-08-06 13:16] LABS: Hepatitis B Surface Antigen Negative (Negative)
[2020-08-06 13:22] LABS: HAV RESULT Negative (Negative); Hepatitis B Core IgM Result Negative (Negative)
[2020-08-06 13:33] LABS: Hepatitis C Virus Antibody Negative (Negative)
[2020-08-06 16:34] LABS: Glucose Point of Care 208 (65-105)
[2020-08-06 20:55] LABS: Glucose Point of Care 101 (65-105)
[2020-08-07] VITALS (15 sets, daily range): BP systolic 123–140; BP diastolic 45–54; PULSE 66–98; RESP 14–18; TEMP 36.1–36.7; O2SAT 97–100
--- NOTE | 2020-08-07 | ECHO_ITS ---
Patient Info Name: Tonya Scherer Age: 80 years : 1940 Gender: Female Ht: 57 in Wt: 126 lbs BSA: 1.54 m2 HR: 76 bpm BP: 140 / 54 mmHg Exam Date: 08/07/2020 10:53 AM Exam Location: [facility] Patient Status: Inpatient Admit Date: 08/05/2020 Staff Ordering Physician: Chip Graham MD Plant Protection Officer: Lina Gutierrez RDCS Attending Provider: Clifford Tong MD Exam Type: CA echo dop color flow w con Study Info Indications I23.8 - Other current complications following acute myocardial infarction Complete two-dimensional, color flow and Doppler transthoracic echocardiogram is performed with contrast to opacify the left ventricle and to improve the deliniation of the left ventricle endocardial borders. Contrast/Agitated Saline Contrast/Ag. Saline: Definity Amount: 1.00 ml Summary 1. Echo contrast was used for endocardial delineation. Normal LV size, sigmoid hypertrophy, mild LV systolic dysfunction with segmental wall motion abnormalities; LVEF 45-50%. Anteroseptal, mid anterior and apical segments severely hypokinetic to akinetic. No LV apical thrombus is visualized. Grade 1 diastolic dysfunction. Mild left enlargement. Mild mitral annular calcification, trace MR. Aortic valve sclerosis, mild stenosis, valve area 2.1 cm2. Trace AI. Mild pulmonary hypertension, RVSP 41 mmHg, trace TR. Sinus rhythm. Left Ventricle Left ventricular systolic function is mildly reduced, estimated at 45-50%. There is no increased left ventricular wall thickness. The left ventricular diastolic function is grade I diastolic dysfunction. There is no thrombus visualized in the left ventricle. Right Ventricle Right ventricular chamber dimension is normal. Right ventricular systolic function is normal. Left Atria Left atrial chamber dimension is mildly enlarged. Right Atria Right atrial chamber dimension is normal. Aortic Valve There is mild aortic valve sclerosis. There is mild aortic valve stenosis with a peak velocity of 172.37 cm/s, mean gradient of 7 mmHg, and aortic valve area of 2.14 cm2. There is trace aortic valve regurgitation. Pulmonic Valve The pulmonic valve is not well visualized. Mitral Valve There is trace mitral valve regurgitation. There is mild mitral valve calcification. Tricuspid Valve The tricuspid valve leaflets are normal. There is trace tricuspid valve regurgitation. Mild pulmonary hypertension, estimated pulmonary arterial systolic pressure is 36 mmHg. Pericardium/Pleural The pericardium appears epicardial fat pad. Inferior Vena Cava Normal inferior vena cava with >50% collapse upon inspiration consistent with Empty right atrial pressure, 10 mmHg. Aorta The aortic root size at the sinus of Valsalva is normal. Left Ventricular Outflow Tract Name Value Normal LVOT 2D LVOT Diameter 1.88 cm LVOT Doppler LVOT Peak Velocity 124.93 cm/s LVOT Peak Gradient 6 mmHg LVOT Mean Gradient 4 mmHg LVOT VTI 27.50 cm LVOT VTI/AV VTI Ratio
[2020-08-07 05:25] LABS: Hematocrit 31.3 % (37.0-47.0); Hemoglobin 10.4 g/dL (12.0-15.0)
[2020-08-07 05:48] LABS: Alanine Aminotransferase 34 U/L (4-35); Alkaline Phosphatase 57 U/L (38-126); Anion Gap 6 mmol/L (8-16); Aspartate Amino Transferase 128 U/L (14-36); Bilirubin,Total 0.7 mg/dL (0.2-1.3); Blood Urea Nitrogen 22 mg/dL (7-17); Calcium 8.2 mg/dL (8.4-10.2); Carbon Dioxide 23 mmol/L (22-30); Chloride 110 mmol/L (98-107); Estimated Glomerular Filt Rate 43; Glucose 137 mg/dL (65-105); Potassium 3.8 mmol/L (3.4-5.0); Sodium 139 mmol/L (137-145)
[2020-08-07] MEDS: SPIRONOLACTONE 25 MG TABLET PO (09:07)
[2020-08-07] MEDS: ROSUVASTATIN 10 MG TABLET PO (09:07)
[2020-08-07] MEDS: lisinopriL 10 MG TABLET PO (09:07)
[2020-08-07] MEDS: carvediloL 6.25 MG TABLET PO ×2 (09:07→20:20)
[2020-08-07] MEDS: TICAGRELOR 90 MG TABLET PO ×2 (09:07→20:20)
[2020-08-07] MEDS: PANTOPRAZOLE 40 MG TABLET PO (09:07)
[2020-08-07] MEDS: ASPIRIN 81 MG CHEWABLE TABLET PO (09:09)
--- NOTE | 2020-08-07 09:31 | PM.IMPN ---
Progress Note: A&P Assessment and Plan (1) ST elevation (STEMI) myocardial infarction: Code(s): I21.3 - ST elevation (STEMI) myocardial infarction of unspecified site Status: Acute Assessment and Plan: Status post cardiac catheterization 08/05/20 -stenting to the proximal LAD -large area of anterior apical akinesia and global ejection fraction around 35% -chest x-ray noted, likely pulmonary edema. Do not suspect infection at this time. Normal white count, no cough -insertion site right femoral artery with statseal and no hematoma or bleeding. -No CP overnight -I have asked the nurse to walk her to ensure she has no reoccurrence of CP -tele reviewed, Normal sinus rhythm -lipid panel reviewed, LDL 89. -continue carvedilol, lisinopril,rosvustatin, spironolactone, and aspirin (2) Diabetes: Code(s): E11.9 - Type 2 diabetes mellitus without complications Status: Inactive Assessment and Plan: Last glucose 137 -will continue sliding scale insulin -A1c 6.2 -restart glipizide 2 mg and 100 mg of Januvia at discharge (3) Hypertension: Code(s): I10 - Essential (primary) hypertension Status: Inactive Assessment and Plan: Last blood pressure 140/54 -continue carvedilol, lisinopril, and spironolactone at this time (4) Breast cancer: Code(s): C50.919 - Malignant neoplasm of unspecified site of unspecified female breast Status: Acute Assessment and Plan: Treated in 2018, no known recurrence at this time -follows and Dr. 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 -status post left partial mastectomy -status post chemotherapy and radiation 2018 -Plans to follow up soon with routine monitoring (5) Transaminitis: Code(s): R74.01 - Elevation of levels of liver transaminase levels Status: Acute Assessment and Plan: Much improved today -Could be due to cardiac injury -Improving while on statin therapy, would recommend continuing with that -RUQ u/s with cholelithiasis but no evidence of cholecystitis on exam or imaging -Bili normal -hepatitis screen neg -Follow up with pcp Additional Plan okay to be discharged from a medical standpoint if cardiology agrees Time Spent With Patient Time with patient: 25 - 35 minutes Subjective Date/time seen: 08/07/20 09:31 Interval history: Patient is an 80-year-old female here for STEMI. Patient was seen today and did not have any chest pain overnight. She is doing well wants to go home. She denies shortness of breath, fevers, chills, abdominal pain, nausea, vomiting, diarrhea or constipation. No leg swelling noted. Her last bowel movement was yesterday. She has only been up to the commode. I have asked the patient and the nurse to have her walk down the gallegos to ensure no chest pain or shortness of breath Review of Systems Review of Systems: All systems reviewed & are unremarkable except as noted in HPI and below Exam Narrative: Exam Narrative: General: Well developed well nourished patient in NAD HEENT: normocephalic Neck: supple Neuro: Alert and oriented x4 CV:RRR. Telemetry shows normal sinus rhythm at a rate of 80. No significant alarm reviews Resp:CTA Abd: Soft, non distended. No pain to palpation. Positive bowel sounds Extremities: No swelling, erythema, or pain to palpation. statseal inplace with no hematoma or bleeding. pulses intact Objective Data Vital Signs Vital Signs: Vital Signs - 24 hr 08/06/20 10:00 08/06/20 12:00 08/06/20 14:00 Temperature 98.2 F Pulse Rate 84 72 75 Respiratory Rate 19 22 H Blood Pressure 120/52 L 112/61 Pulse Oximetry 98 99 08/06/20 16:00 08/06/20 18:00 08/06/20 19:31 Temperature 98 F 97.1 F L Pulse Rate 72 78 79 Respiratory Rate 20 18 Blood Pressure 112/49 L 104/42 L Pulse Oximetry 99 98 08/06/20 20:00 08/06/20 20:54 08/06/20 2
--- NOTE | 2020-08-07 10:28 | PM.PNCARD ---
Progress Note: A&P Assessment and Plan (1) ST elevation (STEMI) myocardial infarction: Code(s): I21.3 - ST elevation (STEMI) myocardial infarction of unspecified site Status: Acute Assessment and Plan: Patient is status post primary PCI/KAYLA x1 proximal LAD in the setting of late presentation anterior AR. LVEF is reported to be 35% with segmental wall motion abnormality. -due to LV dysfunction with apical and anterior akinesis, check echocardiogram with contrast to rule out LV apical thrombus -patient has MANDIE. Continue to monitor renal function; hold spironolactone for now. Check BMP in morning. -continue dual antiplatelet therapy with aspirin and ticagrelor; continue beta-orlin, low dose ORACIO-inhibitor, statin. -patient was eager to go home today, however she was advised to stay at least 1 more day to check her echocardiogram, monitor renal function. -patient can be transferred to a telemetry bed. Subjective Date/time seen: 08/07/20 10:28 Date of service: 08/07/2020 Chief complaint: Denies chest pain; wants to go home Interval history: Patient denies any chest pain or shortness of breath at present. She is eager to go home. Exam Narrative: Exam Narrative: PHYSICAL EXAMINATION: GENERAL: Alert, oriented, no acute distress MENTAL STATUS: affect appropriate to mood EYES: Extraocular movements intact, no pallor EARS: External ears appear normal, hearing grossly normal NOSE: Normal and patent, no discharge MOUTH: Mucous membranes moist NECK: Supple, no JVD CHEST: clear to auscultation HEART: Somewhat distant heart sounds, S4 gallop ABDOMEN: Soft, nontender NEUROLOGICAL: Alert, oriented, normal speech, no gross motor deficits MUSCULOSKELETAL: No major deformity, no amputation EXTREMITIES: No pedal edema, no clubbing, no cyanosis; right groin access site unremarkable SKIN: no rash on the exposed area, no cyanosis PSYCHIATRIC: Normal mood, appropriate affect Objective Data Vital Signs Vital Signs: Vital Signs - 24 hr 08/06/20 12:00 08/06/20 14:00 08/06/20 16:00 Temperature 36.8 C 36.6 C Pulse Rate 72 75 72 Respiratory Rate 22 H 20 Blood Pressure 112/61 112/49 L Pulse Oximetry 99 99 08/06/20 18:00 08/06/20 19:31 08/06/20 20:00 Temperature 36.2 C L Pulse Rate 78 79 74 Respiratory Rate 18 Blood Pressure 104/42 L Pulse Oximetry 98 08/06/20 20:54 08/06/20 22:00 08/06/20 23:46 Temperature 36.3 C L Pulse Rate 72 72 78 Respiratory Rate 18 Blood Pressure 112/57 L Pulse Oximetry 98 08/07/20 00:00 08/07/20 02:00 08/07/20 04:00 Temperature 36.1 C L Pulse Rate 70 70 72 Respiratory Rate 18 Blood Pressure 126/47 L Pulse Oximetry 98 08/07/20 05:35 08/07/20 08:00 08/07/20 08:17 Temperature 36.7 C Pulse Rate 66 78 Respiratory Rate 18 Blood Pressure 140/54 L Pulse Oximetry 99 99 08/07/20 09:07 Temperature Pulse Rate 98 Respiratory Rate Blood Pressure Pulse Oximetry Intake/Output Intake/Output: Intake & Output 08/04/20 08/05/20 08/06/20 08/07/20 23:59 23:59 23:59 23:59 Intake Total 760 250 Output Total 200 2475 Balance -200 -1715 250 Meds/Results Medications: Active Medications Generic Name Dose Route Start Last Admin Trade Name Freq PRN Reason Stop Dose Admin Aspirin 81 mg 08/06/20 08:00 08/07/20 09:09 Aspirin 81 Mg Chewable Tablet PO 81 mg DAILY@0800 ALIX Administration Carvedilol 6.25 mg 08/05/20 21:00 08/07/20 09:07 Carvedilol 6.25 Mg Tablet PO 6.25 mg Q12HR ALIX Administration Dextrose 12.5 gm 08/05/20 23:23 Dextrose 50% 25 Gm/50 Ml Syringe IV PUSH PRN PRN Hypoglycemia Protocol Glucagon 1 mg 08/05/20 23:23 Glucagon For Inj 1 Mg Vial IM PRN PRN Hypoglycemia Protocol Glucose 15 gm 08/05/20 23:23 Glucose Oral Gel 15 Gm Of Glucse In 37.5 Gm Tube PO PRN PRN Hypoglycemia Protocol Dextrose 1,000 mls @ 100 mls
[2020-08-07] MEDS: PERFLUTREN LIPID MICROSPHERES 1.5 ML VIAL DILUTED TO 10 ML TOTAL VOLUME IV PUSH (11:18)
[2020-08-07 12:40] LABS: Hematocrit 36.1 % (37.0-47.0); Hemoglobin 11.8 g/dL (12.0-15.0)
[2020-08-07 17:37] LABS: Glucose Point of Care 122 (65-105)
[2020-08-07 20:06] LABS: Glucose Point of Care 181 (65-105)
[2020-08-08 04:00] VITALS: PULSE 60
[2020-08-08 05:27] VITALS: BP 119/53; PULSE 56; RESP 18; TEMP 36.8; O2SAT 98
[2020-08-08 08:00] VITALS: BP 127/45; PULSE 66; PULSE 71; RESP 16; TEMP 36.5; O2SAT 99
[2020-08-08 08:04] LABS: Alanine Aminotransferase 25 U/L (4-35); Albumin Level 3.3 g/dL (3.5-5.1); Alkaline Phosphatase 59 U/L (38-126); Anion Gap 4 mmol/L (8-16); Aspartate Amino Transferase 65 U/L (14-36); Bilirubin,Total 0.7 mg/dL (0.2-1.3); Blood Urea Nitrogen 21 mg/dL (7-17); Calcium 8.2 mg/dL (8.4-10.2); Carbon Dioxide 25 mmol/L (22-30); Chloride 111 mmol/L (98-107); Estimated Glomerular Filt Rate 53; Glucose 163 mg/dL (65-105); Potassium 3.8 mmol/L (3.4-5.0); Sodium 140 mmol/L (137-145)
[2020-08-08 08:23] VITALS: PULSE 71
[2020-08-08] MEDS: carvediloL 6.25 MG TABLET PO (08:23)
[2020-08-08] MEDS: PANTOPRAZOLE 40 MG TABLET PO (08:23)
[2020-08-08] MEDS: lisinopriL 10 MG TABLET PO (08:23)
[2020-08-08] MEDS: TICAGRELOR 90 MG TABLET PO (08:23)
[2020-08-08] MEDS: ROSUVASTATIN 10 MG TABLET PO (08:23)
[2020-08-08] MEDS: ASPIRIN 81 MG CHEWABLE TABLET PO (08:25)
--- NOTE | 2020-08-08 08:45 | PM.IMPN ---
Progress Note: A&P Assessment and Plan (1) ST elevation (STEMI) myocardial infarction: Code(s): I21.3 - ST elevation (STEMI) myocardial infarction of unspecified site Status: Acute Assessment and Plan: Status post cardiac catheterization 08/05/20 -stenting to the proximal LAD -large area of anterior apical akinesia and global ejection fraction around 35% -chest x-ray noted, likely pulmonary edema. Do not suspect infection at this time. Normal white count, no cough -insertion site right femoral artery with statseal and no hematoma or bleeding. -No CP overnight and was able to walk the halls yesterday -tele reviewed, Normal sinus rhythm -lipid panel reviewed, LDL 89. -continue carvedilol, lisinopril,rosvustatin, and aspirin (2) Diabetes: Code(s): E11.9 - Type 2 diabetes mellitus without complications Status: Inactive Assessment and Plan: Last glucose 163 -will continue sliding scale insulin -A1c 6.2 -restart glipizide 2 mg and 100 mg of Januvia at discharge (3) Hypertension: Code(s): I10 - Essential (primary) hypertension Status: Inactive Assessment and Plan: Last blood pressure 119/53 -continue carvedilol, and lisinopril (4) Breast cancer: Code(s): C50.919 - Malignant neoplasm of unspecified site of unspecified female breast Status: Acute Assessment and Plan: Treated in 2018, no known recurrence at this time -follows and Dr. 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 -status post left partial mastectomy -status post chemotherapy and radiation 2017 -Plans to follow up soon with routine monitoring (5) Transaminitis: Code(s): R74.01 - Elevation of levels of liver transaminase levels Status: Acute Assessment and Plan: Much improved today -Could be due to cardiac injury -Improving while on statin therapy, would recommend continuing with that -RUQ u/s with cholelithiasis but no evidence of cholecystitis on exam or imaging -Bili normal -hepatitis screen neg -Follow up with pcp Additional Plan okay to be discharged from a medical standpoint if cardiology agrees Subjective Date/time seen: 08/08/20 08:45 Interval history: Patient is an 80-year-old female here for STEMI. Patient was seen today and did not have any chest pain overnight. She is doing well and eating breakfast currently. She states she walked the halls 3 times yesterday and had no further chest pain. She denies shortness of breath, fevers, chills, abdominal pain, nausea, vomiting, diarrhea or constipation. No leg swelling noted. Exam Narrative: Exam Narrative: General: Well developed well nourished patient in NAD HEENT: normocephalic Neck: supple Neuro: Alert and oriented x4 CV:RRR. Telemetry shows normal sinus rhythm at a rate of 75. No significant alarm reviews Resp:CTA Abd: Soft, non distended. No pain to palpation. Positive bowel sounds Extremities: No swelling, erythema, or pain to palpation. Pulses intact Objective Data Vital Signs Vital Signs: Vital Signs - 24 hr 08/07/20 09:07 08/07/20 10:00 08/07/20 12:00 Temperature 97.3 F L Pulse Rate 98 93 70 Respiratory Rate 18 Blood Pressure 123/46 L Pulse Oximetry 98 08/07/20 15:26 08/07/20 16:00 08/07/20 20:00 Temperature 97.7 F Pulse Rate 70 67 67 Respiratory Rate 14 18 Blood Pressure 130/52 L Pulse Oximetry 100 97 08/07/20 20:20 08/07/20 20:23 08/07/20 23:42 Temperature 97.6 F Pulse Rate 80 70 70 Respiratory Rate 18 Blood Pressure 127/45 L Pulse Oximetry 97 08/08/20 04:00 08/08/20 05:27 08/08/20 08:23 Temperature 98.2 F Pulse Rate 60 56 L 71 Respiratory Rate 18 Blood Pressure 119/53 L Pulse Oximetry 98 Intake/Output Intake/Output: Intake & Output 08/05/20 08/06/20 08/07/20 08/08/20 23:59 23:59 23:59 23:59 Intake Total 760 970 30
[2020-08-08 09:21] LABS: Glucose Point of Care 158 (65-105)
--- NOTE | 2020-08-08 11:06 | PM.PNCARD ---
Progress Note: A&P Additional Plan 80-year-old lady with: Coronary artery disease presenting with acute anterior ST-elevation [place]. Patient did present late in the course of the event. She did undergo angiographically successful PCI of the proximal LAD occlusion. Because of this as expected she has had a significant area of infarction and will certainly have chronic left ventricular systolic dysfunction. Spent a fair amount of time in the room this morning again explaining that to the patient. She is nonetheless a good candidate for discharge today she is hemodynamically stable in the event has otherwise been uncomplicated. She will be discharged on dual anti-platelet therapy, beta-orlin ARB and statin. Follow-up in the office will be scheduled for 2-3 weeks. Clifford Tong MD [facility] Subjective Date/time seen: Date of service: 08/08/20 11:06 Interval history: Follow-up visit in this 80-year-old lady with: Acute anterior wall myocardial infarction presenting very late in the course of the event having undergone successful emergency PCI to the proximal LAD using the drug-eluting stent with a good anatomical result. As expected patient does have significant anterior wall dysfunction and ejection fraction in the vicinity of 35%. Otherwise the event has been uncomplicated. Patient feels relatively well today she does notice when she is ambulating in the [place] she has dyspnea which of course is not unexpected. I did spend a fair amount of time explaining this to the patient so that this is not of great concern when she gets home. Exam Const: General: comfortable and no acute distress HENMT: Mouth: Yes moist mucous membranes Eyes: Sclera: sclerae normal Pupils: Equal, round and reactive pupils present Neck: Neck: no JVD Thyroid: thyroid normal Resp: Effort & Inspection: normal respiratory effort Auscultation: clear to auscultation bilaterally Cardio: Rate: regular rate Rhythm: regular rhythm Other: No murmur no gallop GI: GI Palp: Yes Soft to palpation Auscultation: normal bowel sounds Skin: General skin exam: normal color Neuro: Cognition (Neuro): normal cognition Extrem: General: normal to inspection Objective Data Vital Signs Vital Signs: Vital Signs - 24 hr 08/07/20 12:00 08/07/20 15:26 08/07/20 16:00 Temperature 36.3 C L 36.5 C Pulse Rate 70 70 67 Respiratory Rate 18 14 Blood Pressure 123/46 L 130/52 L Pulse Oximetry 98 100 08/07/20 20:00 08/07/20 20:20 08/07/20 20:23 Temperature 36.4 C Pulse Rate 67 80 70 Respiratory Rate 18 18 Blood Pressure 127/45 L Pulse Oximetry 97 97 08/07/20 23:42 08/08/20 04:00 08/08/20 05:27 Temperature 36.8 C Pulse Rate 70 60 56 L Respiratory Rate 18 Blood Pressure 119/53 L Pulse Oximetry 98 08/08/20 08:00 08/08/20 08:23 Temperature 36.5 C Pulse Rate 71 71 Respiratory Rate 16 Blood Pressure 127/45 L Pulse Oximetry 99 Intake/Output Intake/Output: Intake & Output 08/05/20 08/06/20 08/07/20 08/08/20 23:59 23:59 23:59 23:59 Intake Total 760 970 300 Output Total 200 2475 Balance -200 -1715 970 300 Meds/Results Medications: Active Medications Generic Name Dose Route Start Last Admin Trade Name Freq PRN Reason Stop Dose Admin Aspirin 81 mg 08/06/20 08:00 08/08/20 08:25 Aspirin 81 Mg Chewable Tablet PO 81 mg DAILY@0800 ALIX Administration Carvedilol 6.25 mg 08/05/20 21:00 08/08/20 08:23 Carvedilol 6.25 Mg Tablet PO 6.25 mg Q12HR ALIX Administration Dextrose 12.5 gm 08/05/20 23:23 Dextrose 50% 25 Gm/50 Ml Syringe IV PUSH PRN PRN Hypoglycemia Protocol Glucagon 1 mg 08/05/20 23:23 Glucagon For Inj 1 Mg Vial IM PRN PRN Hypoglycemia Protocol Glucose 15 gm 08/05/20 23:23 Glucose Oral Gel 15 Gm Of Glucse In 37.5 Gm Tube PO PRN PRN Hypoglycemia Protocol Dextrose 1,000 mls @ 100 mls/hr 08/05/20 23:23 Dextrose 5% 1,000 Ml IV
--- NOTE | 2020-08-08 11:15 | PM.DS ---
DS: Admitting Diagnosis Admitting Diagnosis Admitting Diagnosis: Stemi DS: Discharge Diagnosis Discharge Diagnosis (1) ST elevation (STEMI) myocardial infarction: Code(s): I21.3 - ST elevation (STEMI) myocardial infarction of unspecified site Status: Acute Assessment and Plan: Patient is status post primary PCI/KAYLA x1 proximal LAD in the setting of late presentation anterior [place]. LVEF is reported to be 35% with segmental wall motion abnormality. DS: Summary Hospital Course Reason for hospitalization: 80-year-old woman hospitalized with acute anterior wall ST-elevation [place] Hospital Course: This 80-year-old woman presented with chest heaviness for 15-16 hours ECG in the ER was diagnostic of an acute anterior wall [place] and despite the late presentation she was brought for emergency catheterization and revascularization. 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 The LAD lesion was treated successfully with drug-eluting stent with a good result. The details of the catheterization procedure are the separately dictated catheterization note. Following the procedure she had essentially an unremarkable/uncomplicated hospital course despite her age and of substantial infarction. Her troponin level did rise up to greater than 80 which was not unexpected given the late presentation. Left ventricular ejection fraction by LV g was 35% with akinesis of the anterior wall. Patient was treated with standard medical therapy including dual anti-platelet therapy carvedilol lisinopril and rosuvastatin. She is ambulating today she does have some exertional shortness of breath which is to be expected but no other symptomatology and is eager to go home. She is considered a good candidate for discharge and will be set up for office follow-up in 2-3 weeks. Status at Discharge Functional status at discharge: independent ambulation Overall status at discharge: patient is back to baseline Time Spent with Patient Time attestation: Total time spent providing and/or coordinating discharge services: Time spent: Greater than 30 minutes Exam Const: General: comfortable and no acute distress HENMT: Mouth: Yes moist mucous membranes Eyes: Sclera: sclerae normal Pupils: Equal, round and reactive pupils present Neck: Neck: no JVD Thyroid: thyroid normal Resp: Auscultation: clear to auscultation bilaterally Cardio: Rate: regular rate Rhythm: regular rhythm Other: No murmur no gallop no rub GI: GI Palp: Yes Soft to palpation Auscultation: normal bowel sounds Skin: General skin exam: normal color Extrem: General: normal to inspection DS: Data Data Completed and Pending Labs on day of discharge: Labs from last 24 hours 08/08/20 08/08/20 08/07/20 08:07 06:28 19:32 Hgb Hct Sodium 140 Potassium 3.8 Chloride 111 H Carbon Dioxide 25 Anion Gap 4 L BUN 21 H Creatinine 1.00 Estim Creat Clear Calc Not Reportable Estimated GFR 53 L Glucose 163 H POC Capillary Glucose 158 H 181 H Calcium 8.2 L Total Bilirubin 0.7 AST 65 H ALT 25 Alkaline Phosphatase 59 Total Protein 6.0 L Albumin 3.3 L 08/07/20 08/07/20 17:34 12:28 Hgb 11.8 L Hct 36.1 L Sodium Potassium Chloride Carbon Dioxide Anion Gap BUN Creatinine Estim Creat Clear Calc Estimated GFR Glucose POC Capillary Glucose 122 H Calcium Total Bilirubin AST ALT Alkaline Phosphatase Total Protein Albumin Preliminary micro results at discharge 08/05/20 15:10 Blood Culture - Preliminary Blood 08/05/20 15:10 Blood Culture - Preliminary Blood Discharge Plan Discharge Attending physician on discharge: Clifford Tong Consulting providers: Nichelle Colon ; Juan Rowley Discharging Clinician: Clifford Tong Anti
--- NOTE | 2020-08-14 11:18 | PC.NURSE ---
Blood cx are negative.
== END 2020-08-08 12:55 | disposition home or self-care (01) | DRG 247 ==
LOC: ANHED 14:37 → ANHIMU 14:53
PROVIDERS: Internal Medicine Cardiovascular Disease; Physician Assistant; Admitting Provider Specialist; Emergency Provider Emergency Medicine; PCP Internal Medicine; Visit Provider Specialist
PROC: 4A023N7 Measurement of Cardiac Sampling and Pressure, Left Heart, Percutaneous Approach (ICD-10-PCS; CPT 93452; principal; 2020-08-05 16:10)
PROC: 027034Z Dilation of Coronary Artery, One Artery with Drug-eluting Intraluminal Device, Percutaneous Approach (ICD-10-PCS; 2020-08-05 16:10)
PROC: 027034Z Dilation of Coronary Artery, One Artery with Drug-eluting Intraluminal Device, Percutaneous Approach (ICD-10-PCS; 2020-08-05 16:10)
DX: I21.09 ST elevation (STEMI) myocardial infarction involving other coronary artery of anterior wall (principal); I25.10 Atherosclerotic heart disease of native coronary artery without angina pectoris; I10 Essential (primary) hypertension; E11.9 Type 2 diabetes mellitus without complications; N32.81 Overactive bladder; R74.01 Elevation of levels of liver transaminase levels; Z85.3 Personal history of malignant neoplasm of breast
CPT/HCPCS: 36415; 71045; 76705; 80048; 80053; 80061; 80074; 80076; 82948; 83036; 83605; 83735; 84484; 85014; 85018; 85025; 85027; 85610; 85730; 86850; 86900; 86901; 87040; 93005; 93458; 99291; A9270; C1725; C1760; C1769; C1874; C1887; C1894; C8929; C9606; G0269; J0583; J1644; J1815; J2250; J2270; J3010; J7030; J7040; Q9957

== ENCOUNTER 2021-03-11 11:50 | Emergency (ER) | payer MEDICARE, SELFPAY ==
[2021-03-11] VITALS (11 sets, daily range): BP systolic 158–167; BP diastolic 54–93; PULSE 57–67; RESP 13–22; TEMP 36.4; O2SAT 95–98
--- NOTE | ~2021-03-11 | XR_ITS ---
EXAMINATION: XR chest 2V DATE: 03/11/2021 12:42 INDICATION: Shortness of breath TECHNIQUE: PA and lateral views of the chest were obtained. COMPARISON: Chest radiograph dated 08/05/2020 and chest radiograph and CT abdomen and pelvis dated FINDINGS: Small opacity lateral left midlung zone corresponding to region of lingular discoid atelectasis/scarr ing. No other airspace opacities, pulmonary edema, pleural effusion or pneumothorax. Surgical clips a t the left breast likely related to prior excisional biopsy. S-shaped thoracolumbar scoliosis with se ayana spondylosis. IMPRESSION: 1. Chronic mild discoid atelectasis/scarring at the lingula. No acute cardiopulmonary disease. Reviewed, dictated and finalized at location A. IMPRESSION: 1. Chronic mild discoid atelectasis/scarring at the lingula. No acute cardiopul monary disease.
--- NOTE | 2021-03-11 12:35 | ECG_ITS ---
Measurements Intervals [place] Rate: 62 P: 46 [place]: 157 QRS: -7 QRSD: 100 T: 73 QT: 415 QTc: 423 Interpretive Statements SINUS RHYTHM CONSIDER INFERIOR INFARCT, AGE INDETERMINATE BORDERLINE ST-T WAVE ABNORMALITY- HIGH LATERAL LEADS BASELINE ARTIFACT- I, II, III, AVR, AVL, AVF ABNORMAL ECG Electronically Signed On 03-11-2021 13:48:38 CDT by Yahir Lord D.O.
[2021-03-11 13:53] LABS: Basophils Percent Auto 0.3 % (0.2-1.2); Eosinophils Absolute Auto 0.3 K/mm3 (0-0.3); Eosinophils Percent Auto 5.3 % (0-4.4); Hematocrit 36.9 % (37.0-47.0); Immature Granulocyte Absolute 0.02 K/mm3 (0.00-0.031); Immature Granulocyte Percent A 0.3 % (0-0.5); Lymphocytes Absolute Auto 1.07 K/mm3 (0.9-3.2); Lymphocytes Percent Auto 18.3 % (18.3-44.2); Mean Corpuscular HGB Conc 32.5 g/dl (32-36); Mean Corpuscular Hemoglobin 29.1 pg (26-34); Mean Corpuscular Volume 89.6 fl (80-100); Mean Platelet Volume 12.7 fl (7.4-10.4); Monocytes Absolute Auto 0.4 K/mm3 (0.1-0.6); Monocytes Percent Auto 6.7 % (2.6-8.5); Neutrophils Percent Auto 69.1 % (45.5-73.1); Platelet Count Result 120 k/mm3 (150-375); Red Blood Count 4.12 M/mm3 (4.2-5.4); Red Cell Distribution Width 12.3 % (11.5-14.5); White Blood Count 5.8 K/mm3 (4.5-10.0)
[2021-03-11 14:06] LABS: Anion Gap 6 mmol/L (8-16); Blood Urea Nitrogen 18 mg/dL (7-17); Calcium 9.1 mg/dL (8.4-10.2); Carbon Dioxide 25 mmol/L (22-30); Chloride 108 mmol/L (98-107); Estimated Glomerular Filt Rate 53; Glucose 136 mg/dL (65-105); Potassium 4.1 mmol/L (3.4-5.0); Sodium 139 mmol/L (137-145)
--- NOTE | 2021-03-11 15:26 | ED.SOB ---
HPI - SOB/Dyspnea General Chief Complaint: Shortness of Breath/Dyspnea Stated Complaint: SOB Time Seen by Provider: 03/11/21 12:44 History of Present Illness HPI Narrative: Patient is an 80-year-old female who presents ER with shortness of breath. She reports it occurs with exertion. Ongoing for the last 6 months since receiving her LAD stent. She has been compliant with her medical therapy but did not do cardiac rehab been has not followed up with cardiology. She reports recently she is called cardiology and nobody has picked up the phone. She has no chest pain or pressure. No diaphoresis. No chest pain or shortness of breath at rest. Pharmacist had suggested it may be related to her beta-orlin since it has been persistent since her NH and has not worsened. Patient is without fevers or chills or sweats. No sinus congestion or productive cough. Related Data Home Medications Medication Instructions Recorded Confirmed Januvia 100 mg PO DAILY 08/05/20 09/21/20 glimepiride 2 mg PO DAILY 08/05/20 09/21/20 solifenacin 10 mg PO DAILY 08/05/20 09/21/20 Allergies Allergy/AdvReac Type Severity Reaction Status Date / Time codeine Allergy Mild FELT LIKE Verified 03/11/21 12:29 SHE HAD CREEPY-CRAWLIES Sulfa (Sulfonamide Allergy Unknown RASH Verified 03/11/21 12:29 Antibiotics) Review of Systems Review of Systems: All systems reviewed & are unremarkable except as noted in HPI and below Constitutional: Constitutional: Denies chills, Reports fatigue and Denies fever(s) Cardiovascular: Cardiovascular: Denies chest pain, Denies rapid heart rate and Denies radiating jaw, neck or arm pain Respiratory: Respiratory: Denies chest congestion, Denies cough, Reports dyspnea and Denies wheezing Gastrointestinal: Gastrointestinal: Denies abdominal pain, Denies nausea and Denies vomiting PMFSH Past Medical History Medical History (Updated 03/11/21 @ 15:33 by Izaiah Xiao MD) Breast cancer Coronary artery disease Diabetes History of left heart catheterization Hypertension Overactive bladder Surgical History Surgical History (Updated 08/05/20 @ 14:52 by Izaiah Xiao MD) H/O lumpectomy History of appendectomy Family History Family History (Updated 08/05/20 @ 19:40 by Gianna Garcia RN) Sibling Hypertension Father Hypertension Mother Hypertension Social History Social History (Updated 08/06/20 @ 09:42 by Nichelle Colon PA-C) Social History: Patient is a lifelong nonsmoker. She denies drug or alcohol use. Her surrogate decision maker would be her daughter Jaz Saravia if needed Smoking status: Never smoker Alcohol intake: never Substance use: never Gender identity (if verbalized by the patient): Female Spiritual care concerns: No Exam Narrative: Exam Narrative: GENERAL: Well-appearing, well-nourished, and in no acute distress. HEAD: Normocephalic, atraumatic. ENT: Mucous membranes moist. CHEST: Clear to auscultation. No respiratory distress. HEART: Regular rate and rhythm. Normal peripheral pulses. ABDOMEN: Soft, nontender, nondistended. EXTREMITIES: Normal range of motion. No edema. SKIN: Warm, dry, no rash. NEURO: Alert and oriented x3. PSYCH: Normal mood and affect. Course Course Emergency Course: Unremarkable evaluation. Recommend follow-up with her clay thrower for further treatment evaluation. Ambulatory without hypoxia. Vital Signs Vital signs: Vital Signs Temperature 97.5 F L 03/11/21 12:25 Pulse Rate 64 03/11/21 12:25 Respiratory Rate 16 03/11/21 12:25 Blood Pressure 167/54 H 03/11/21 12:25 Pulse Oximetry 98 03/11/21 12:25 Temperature 97.5 F L 03/11/21 12:25 Pulse Rate 61 03/11/21 14:00 Respiratory Rate 16 03/11/21 14:00 Blood Pressure 158/93 H 03/11/21 13:01 Pulse Oximetry 97 03/11/21 14:00 MDM - SOB/Dyspnea Lab Data Result diagrams: 03/11/21 13:44 03/11/21 13:44
--- NOTE | 2021-03-11 15:38 | PC.NURSE ---
Ambulatory in halls. spo2 96-97% on room air while walking.
== END 2021-03-11 16:53 | disposition home or self-care (01) ==
PROVIDERS: Emergency Provider Emergency Medicine; PCP Internal Medicine
DX: R06.00 Dyspnea, unspecified (principal); I25.10 Atherosclerotic heart disease of native coronary artery without angina pectoris; E11.9 Type 2 diabetes mellitus without complications; I10 Essential (primary) hypertension
CPT/HCPCS: 36415; 71046; 80048; 85025; 93005; 99284

== ENCOUNTER 2022-02-26 09:06 | Emergency (ER) | payer MEDICARE, SELFPAY ==
[2022-02-26] VITALS (16 sets, daily range): BP systolic 141; BP diastolic 101; PULSE 75–96; RESP 13–26; TEMP 36.8; O2SAT 93–97
--- NOTE | ~2022-02-26 | XR_ITS ---
EXAMINATION: XR chest 2V DATE: 02/26/2022 09:33 INDICATION: Cough TECHNIQUE: PA and lateral views of the chest were obtained. COMPARISON: Chest radiograph dated 03/11/21 FINDINGS: Subtle opacity along the left heart border corresponding to small left paracardial fat pad and minima l lingular atelectasis/scarring. Focal opacities related costochondral calcifications project over th e anterior ribs in the right lower lung zone. No new airspace opacities, pulmonary edema, pleural eff usion or pneumothorax. The cardiomediastinal silhouette is normal. Mild S-shaped thoracolumbar scolio sis with severe spondylosis. Surgical clips at the left breast suggesting prior excisional biopsy. IMPRESSION: 1. No acute cardiopulmonary disease. Reviewed, dictated and finalized at location A.
--- NOTE | 2022-02-26 09:15 | ECG_ITS ---
Measurements Intervals [place] Rate: 87 P: 69 [place]: 178 QRS: -29 QRSD: 108 T: 80 QT: 359 QTc: 432 Interpretive Statements SINUS RHYTHM POSSIBLE LEFT ATRIAL ENLARGEMENT [-0.1mV P-WAVE IN V1/V2] BORDERLINE LEFT AXIS DEVIATION [QRS AXIS < -20] NONSPECIFIC T-WAVE ABNORMALITY ABNORMAL ECG COMPARED TO ECG 03/11/2021 12:03:05 T-WAVE ABNORMALITY NOW PRESENT Electronically Signed On 02-26-2022 10:33:43 CDT by Mark Abdullahi M.D.
[2022-02-26 09:25] LABS: Basophils Percent Auto 0.2 % (0.2-1.2); Eosinophils Absolute Auto 0.3 K/mm3 (0-0.3); Eosinophils Percent Auto 4.9 % (0-4.4); Hematocrit 41.3 % (37.0-47.0); Immature Granulocyte Absolute 0.01 K/mm3 (0.00-0.031); Immature Granulocyte Percent A 0.2 % (0-0.5); Immature Platelet Fraction Pct 8.3 % (0.9-11.2); Lymphocytes Absolute Auto 0.79 K/mm3 (0.9-3.2); Lymphocytes Percent Auto 14.9 % (18.3-44.2); Mean Corpuscular HGB Conc 31.5 g/dl (32-36); Mean Corpuscular Hemoglobin 29.4 pg (26-34); Mean Corpuscular Volume 93.4 fl (80-100); Mean Platelet Volume 11.8 fl (7.4-10.4); Monocytes Absolute Auto 0.4 K/mm3 (0.1-0.6); Monocytes Percent Auto 6.6 % (2.6-8.5); Neutrophils Absolute Auto 3.9 K/mm3 (1.3-6.7); Neutrophils Percent Auto 73.2 % (45.5-73.1); Platelet Count Result 110 k/mm3 (150-375); Red Blood Count 4.42 M/mm3 (4.2-5.4); Red Cell Distribution Width 11.9 % (11.5-14.5); White Blood Count 5.3 K/mm3 (4.5-10.0)
[2022-02-26 09:36] LABS: Alanine Aminotransferase 30 U/L (6-35); Alkaline Phosphatase 77 U/L (38-126); Anion Gap 6 mmol/L (8-16); Aspartate Amino Transferase 37 U/L (14-36); Bilirubin,Total 0.6 mg/dL (0.2-1.3); Blood Urea Nitrogen 17 mg/dL (7-17); Calcium 8.2 mg/dL (8.4-10.2); Carbon Dioxide 26 mmol/L (22-30); Chloride 102 mmol/L (98-107); Estimated Glomerular Filt Rate 60; Glucose 301 mg/dL (65-110); Lipase 51 U/L (23-300); Potassium 4.6 mmol/L (3.4-5.0); Sodium 134 mmol/L (137-145)
[2022-02-26 09:45] LABS: INR 1.1; Prothrombin Time 13.6 Seconds (11.1-14.7)
[2022-02-26 09:48] LABS: Troponin I 0.026 ng/mL (0.000-0.034)
[2022-02-26] MEDS: ASPIRIN 81 MG CHEWABLE TABLET 324 MG PO (09:49)
--- NOTE | 2022-02-26 10:10 | ED.SOB ---
HPI - SOB/Dyspnea General Chief Complaint: Shortness of Breath/Dyspnea Stated Complaint: difficulty breathing from UC Time Seen by Provider: 02/26/22 09:08 Source: patient History of Present Illness HPI Narrative: Patient presents with shortness of breath. Patient ports she had shortness of breath for the past 3 days this morning it was more severe so she went to an urgent care her oxygen levels were low so she was referred to the ER for further evaluation. EMS gave a DuoNeb treatment in route and patient reports feeling much improved. Patient reports cough over this time. As well as productive denies any blood. She denies any fevers or chest pain. She denies any nausea vomiting diarrhea. She denies prior history of lung disease but does report a heart attack approximately 1 year ago Related Data Home Medications Medication Instructions Recorded Confirmed glimepiride 4 mg tablet 2 mg PO DAILY 08/05/20 09/21/20 sitagliptin 100 mg tablet (Januvia) 100 mg PO DAILY 08/05/20 09/21/20 solifenacin 10 mg tablet 10 mg PO DAILY 08/05/20 09/21/20 Allergies Allergy/AdvReac Type Severity Reaction Status Date / Time codeine Allergy Mild FELT LIKE Verified 03/11/21 12:29 SHE HAD CREGRADY-DEMAR Sulfa (Sulfonamide Allergy Unknown RASH Verified 03/11/21 12:29 Antibiotics) Review of Systems Review of Systems: CONSTITUTIONAL: Denies fever, chills, or sweats. EYES: Denies visual changes, redness, or discharge. ENT: Denies rhinorrhea, congestion, sore throat, or otalgia. CARDIOVASCULAR: Denies chest pain, palpitations, or edema. RESPIRATORY: Denies cough or dyspnea. GASTROINTESTINAL: Denies abdominal pain, nausea, vomiting, or diarrhea. GENITOURINARY: Denies dysuria or hematuria. SKIN: Denies rash or itching. MUSCULOSKELETAL: Denies back pain, joint pain, or myalgia. NEUROLOGIC: Denies headache, numbness, dizziness, or weakness. PSYCHIATRIC: Denies anxiety or depression. All systems reviewed & are unremarkable except as noted in HPI and below PMFSH Past Medical History Medical History Breast cancer Coronary artery disease Diabetes History of left heart catheterization Hypertension Overactive bladder Surgical History Surgical History H/O lumpectomy History of appendectomy Family History Family History Sibling Hypertension Father Hypertension Mother Hypertension Social History Social History Social History: Patient is a lifelong nonsmoker. She denies drug or alcohol use. Her surrogate decision maker would be her daughter Jaz Saravia if needed Smoking status: Never smoker Alcohol intake: never Substance use: never Gender identity (if verbalized by the patient): Female Spiritual care concerns: No Exam Narrative: GENERAL: Well-appearing, well-nourished, and in no acute distress. HEAD: Normocephalic, atraumatic. EYES: PERRLA and EOMI. ENT: Nares clear, no rhinorrhea or epistaxis. Mucous membranes moist. NECK: Supple. No masses. No JVD CHEST: Clear to auscultation. No respiratory distress. No wheezes rales or rhonchi HEART: Regular rate and rhythm. No murmur heard. Normal peripheral pulses. ABDOMEN: Soft, nontender, nondistended, normal active bowel sounds. EXTREMITIES: Normal range of motion. No edema. SKIN: Warm, dry, no rash. NEURO: No focal deficits. Alert and oriented x3. PSYCH: Normal mood and affect. Course Reevaluation(s) Reevaluation #1: Patient reports complete resolution of her symptoms and is requesting to go home. My evaluation oxygen level was greater than 95% on room air to the patient. With a negative work-up outpatient supportive therapies is reasonable. Date: 02/26/22 Time: 11:15 Vital Signs Vital signs: Vital Signs Temperature 36
[2022-02-26] MEDS: IPRATROPIUM BR 0.02% INH SOLN 0.5 MG/2.5 ML VIAL INHALATION (10:14)
[2022-02-26] MEDS: ALBUTEROL SULFATE NEB 2.5 MG/3 ML INH 5 MG INHALATION (10:14)
[2022-02-26 10:38] LABS: SARS-CoV-2 RNA PCR Negative
[2022-02-26 10:54] LABS: D Dimer 0.81 ug/mL (<0.48)
== END 2022-02-26 11:50 | disposition home or self-care (01) ==
PROVIDERS: Emergency Provider Emergency Medicine; PCP Internal Medicine
DX: J40 Bronchitis, not specified as acute or chronic (principal); R06.02 Shortness of breath; R94.31 Abnormal electrocardiogram [ECG] [EKG]; I10 Essential (primary) hypertension; I25.10 Atherosclerotic heart disease of native coronary artery without angina pectoris; E11.9 Type 2 diabetes mellitus without complications
CPT/HCPCS: 36415; 71046; 80053; 83690; 84484; 85025; 85055; 85380; 85610; 85730; 93005; 94640; 99284; A9270; C9803; U0003; U0005

== ENCOUNTER 2023-03-20 13:11 | Emergency (ER) | payer OTHER, MEDICARE, SELFPAY ==
[2023-03-20 13:13] VITALS: BP 184/62; PULSE 69; RESP 16; TEMP 35.9; O2SAT 97
--- NOTE | 2023-03-20 14:24 | PC.NURSE ---
Patient denies any pain and has no complaints
--- NOTE | 2023-03-20 14:55 | PC.NURSE ---
Patient family has come out of room asking to see provider. This RN made providers aware of this and they state they will be in as quickly as they can.
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
--- NOTE | 2023-03-20 16:16 | PC.NURSE ---
patient's family came out of room stating we have been here forever. when can we get out of here ? I informed patient that I did not have discharge papers yet and I would be in as quickly as I could when I get them. Patient family the states 'we have been here since 1pm . I informed patient that I will be in as soon as I get the discharge order and papers to discharge her.
[2023-03-20 16:34] VITALS: BP 192/81; PULSE 65; RESP 18; O2SAT 100
== END 2023-03-20 16:34 | disposition home or self-care (01) ==
PROVIDERS: Emergency Provider Physician Assistant; PCP Internal Medicine
DX: Z04.1 Encounter for examination and observation following transport accident (principal); I25.10 Atherosclerotic heart disease of native coronary artery without angina pectoris; E11.9 Type 2 diabetes mellitus without complications; I10 Essential (primary) hypertension; N32.81 Overactive bladder; Z85.3 Personal history of malignant neoplasm of breast; Z79.84 Long term (current) use of oral hypoglycemic drugs; V49.40XA Driver injured in collision with unspecified motor vehicles in traffic accident, initial encounter
CPT/HCPCS: 99282

== ENCOUNTER 2024-01-27 08:48 | Outpatient (CLI) | payer MEDICARE, SELFPAY ==
--- NOTE | 2024-01-27 11:30 | NEURO_ITS ---
Impression: # Diabetic for long duration complains of imbalance. # Severe motor/sensory axonal neuropathy. # Needle/EMG exam with neurogenic changes without active fibrillations. Nerve Conduction Studies Anti Sensory Summary Table Stim Site NR Peak (ms) P-T Amp (?V) Site1 Site2 Delta-P (ms) Dist (cm) Rde (m/s) Left Sup Fibular Anti Sensory (Ant Lat Mall) NO RESPONSE 14 cm NR 14 cm Ant Lat Mall 16.0 Right Sup Fibular Anti Sensory (Ant Lat Mall) NO RESPONSE 14 cm NR 14 cm Ant Lat Mall 16.0 Left Sural Anti Sensory (Lat Mall) NO RESPONSE Calf NR Calf Lat Mall 16.0 Right Sural Anti Sensory (Lat Mall) Calf 3.1 24.5 Calf Lat Mall 3.1 16.0 52 Motor Summary Table Stim Site NR Onset (ms) O-P Amp (mV) Site1 Site2 Delta-0 (ms) Dist (cm) Red (m/s) Left Peroneal Motor (Vastus Med) NO RESPONSE Ankle NR Popit Ankle 0.0 Popit NR Right Peroneal Motor (Vastus Med) NO RESPONSE Ankle NR Popit Ankle 0.0 Popit NR Left Tibial Motor (Abd Arreguin Brev) NO RESPONSE Ankle NR Knee NR Right Tibial Motor (Abd Arreguin Brev) NO RESPONSE Ankle NR Knee NR F Wave Studies NR F-Lat (ms) L-R F-Lat (ms) Left Peroneal (Mrkrs) (EDB) NO RESPONSE NR Right Peroneal (Mrkrs) (EDB) NO RESPONSE NR Left Tibial (Mrkrs) (Abd Hallucis) NO RESPONSE NR Right Tibial (Mrkrs) (Abd Hallucis) DISPERSED RESPONSE NR EMG Side Muscle Nerve Root Ins Act Fibs Amp Dur Recrt Comment Right AntTibialis Dp Br Fibular L4-5 Nml Nml Nml >12ms +2 Right Gastroc Tibial S1-2 Nml Nml Nml >12ms +2 Right Fibularis Long Sup Br Fibular L5-S1 Nml Nml Nml >12ms +2 Right Flex Dig Long Tibial L5-S2 Nml Nml Nml >12ms +2 Right Ext Dig Brev Dp Br Fibular L5, S1 Nml Nml Nml >12ms +4 Left AntTibialis Dp Br Fibular L4-5 Nml Nml Nml >12ms +2 Left Gastroc Tibial S1-2 Nml Nml Nml >12ms +2 Left Fibularis Long Sup Br Fibular L5-S1 Nml Nml Nml >12ms +2 Left Flex Dig Long Tibial L5-S2 Nml Nml Nml >12ms +2 Left Ext Dig Brev Dp Br Fibular L5, S1 Nml Nml Nml >12ms +4 MTDD
== END 2024-01-27 08:49 | disposition home or self-care (01) ==
LOC: ANHNEURO 08:50
PROVIDERS: PCP Internal Medicine; Visit Provider Internal Medicine
DX: G62.9 Polyneuropathy, unspecified (principal)
CPT/HCPCS: 95886; 95910

== ENCOUNTER 2024-04-07 10:52 | Outpatient (CLI) | payer MEDICARE, SELFPAY ==
[2024-04-07 11:13] LABS: Basophils Percent Auto 0.6 % (0.2-1.2); Eosinophils Absolute Auto 0.3 K/mm3 (0-0.3); Eosinophils Percent Auto 4.1 % (0-4.4); Hematocrit 35.8 % (37.0-47.0); Hemoglobin 11.3 g/dL (12.0-15.0); Immature Granulocyte Absolute 0.01 K/mm3 (0.00-0.031); Immature Granulocyte Percent A 0.2 % (0-0.5); Immature Platelet Fraction Pct 9.8 % (0.9-11.2); Lymphocytes Percent Auto 14.3 % (18.3-44.2); Mean Corpuscular HGB Conc 31.6 g/dl (32-36); Mean Corpuscular Hemoglobin 29.2 pg (26-34); Mean Corpuscular Volume 92.5 fl (80-100); Mean Platelet Volume 12.3 fl (7.4-10.4); Monocytes Absolute Auto 0.4 K/mm3 (0.1-0.6); Monocytes Percent Auto 6.5 % (2.6-8.5); Neutrophils Absolute Auto 4.7 K/mm3 (1.3-6.7); Neutrophils Percent Auto 74.3 % (45.5-73.1); Platelet Count Result 127 k/mm3 (150-375); Red Blood Count 3.87 M/mm3 (4.2-5.4); Red Cell Distribution Width 13.5 % (11.5-14.5); White Blood Count 6.3 K/mm3 (4.5-10.0)
[2024-04-07 13:18] LABS: Iron 68 ug/dL (37-170)
[2024-04-07 13:38] LABS: Percent Iron Saturation 24 % (20-50)
[2024-04-07 16:48] LABS: Alanine Aminotransferase 21 U/L (6-35); Albumin Level 4.2 g/dL (3.5-5.1); Alkaline Phosphatase 75 U/L (38-126); Anion Gap 10 mmol/L (4-12); Aspartate Amino Transferase 33 U/L (14-36); Bilirubin,Total 0.5 mg/dL (0.2-1.3); Blood Urea Nitrogen 22 mg/dL (7-17); Calcium 9.2 mg/dL (8.4-10.2); Carbon Dioxide 29 mmol/L (22-30); Chloride 96 mmol/L (98-107); Estimated Glomerular Filt Rate > 60; Glucose 151 mg/dL (65-110); Potassium 4.5 mmol/L (3.4-5.0); Sodium 135 mmol/L (137-145)
[2024-04-07 17:59] LABS: Folic Acid > 20.0 ng/mL (2.76->20); Vitamin B12 > 1000.0 pg/mL (239-931)
[2024-04-11 15:39] LABS: Methylmalonic Acid 345 nmol/L (85-423)
[2024-04-13 19:58] LABS: Platelet Antibody, Direct NEGATIVE (NEGATIVE)
[2024-04-14 13:39] LABS: Soluble Transferrin Receptor 1.72 mg/L (0.76-1.76)
== END 2024-04-07 10:53 | disposition home or self-care (01) ==
LOC: ANHLAB 10:54
PROVIDERS: Nurse Practitioner Family; PCP Internal Medicine; Visit Provider Internal Medicine Hematology & Oncology
DX: D50.9 Iron deficiency anemia, unspecified (principal); D69.6 Thrombocytopenia, unspecified
CPT/HCPCS: 36415; 80053; 82607; 82728; 82746; 83540; 83550; 83921; 84238; 85025; 85055; 86023

== ENCOUNTER 2024-04-27 08:39 | Outpatient (CLI) | payer MEDICARE, SELFPAY ==
--- NOTE | ~2024-04-27 | US_ITS ---
US abdomen complete EXAMINATION: US Abdomen Complete INDICATION: Iron deficiency anemia PROCEDURE: Realtime High Resolution abdomen ultrasound. COMPARISON: Ultrasound dated 08/07/2020 FINDINGS: There are gallstones. No gallbladder wall thickening or pericholecystic fluid. Common bile duct measures 5 mm. Liver echotexture within normal limits without focal mass. Pancreas within normal limits. Pancreati c tail is obscured by bowel gas. Spleen is unremarkeable. Renal echotexture is within normal limits bilaterally without hydronephrosis, contour deforming mass. There is an echogenic focus in the mid as pect of the left kidney measuring 5 mm, suspicious for nonobstructing left renal stone. Right kidney measures 9.3 cm. Left kidney measures 10.3 cm. Visualized aspects of the aorta and IVC are within normal limits. Portal vein is patent. No sonograph ic Rai's sign indicated by the technologist. IMPRESSION: 1: Gallstones. 2: Possible nonobstructing 5 mm left renal stone. Reviewed, dictated and finalized at location B.
== END 2024-04-27 08:40 | disposition home or self-care (01) ==
PROVIDERS: PCP Internal Medicine; Visit Provider Nurse Practitioner Family
DX: D50.9 Iron deficiency anemia, unspecified (principal); D69.6 Thrombocytopenia, unspecified; K80.20 Calculus of gallbladder without cholecystitis without obstruction
CPT/HCPCS: 76700

== ENCOUNTER 2024-07-08 08:45 | Observation (INO) | payer MEDICARE, SELFPAY ==
[2024-07-08] VITALS (21 sets, daily range): BP systolic 140–197; BP diastolic 52–99; PULSE 66–90; RESP 13–20; TEMP 36.4–37.5; O2SAT 94–100; BMI 21.7
--- NOTE | 2024-07-08 | ECHO_ITS ---
Patient Info Name: Tonya Scherer Age: 84 years : 1940 Gender: Female Ht: 57 in Wt: 105 lbs BSA: 1.39 m2 HR: 76 bpm BP: 156 / 60 mmHg Heart Rhythm: Sinus Rhythm Technical Quality: Good Exam Date: 07/08/2024 1:28 PM Exam Location: Echo Lab Patient Status: Inpatient Admit Date: 07/08/2024 Staff Ordering Physician: Maricarmen Salazar APRN Cattle Inspector: Edward Hutchins RDCS Attending Provider: Juan Segovia MD Referring Physician: Marie ROLDAN; Exam Type: CA echo doppler color flow Study Info Indications - CHF Complete two-dimensional, color flow and Doppler transthoracic echocardiogram is performed. Summary 1. Left ventricular chamber dimension is normal. 2. Left ventricular systolic function is moderately reduced, estimated at 30-35%. 3. There is moderately increased left ventricular wall thickness. 4. The left ventricular diastolic function is grade I diastolic dysfunction. 5. Right ventricular systolic function is normal. 6. Left atrial chamber dimension is severely enlarged. 7. Right atrial chamber dimension is moderately enlarged. 8. There is mild aortic valve regurgitation. 9. There is mild mitral valve regurgitation. 10. There is mild tricuspid valve regurgitation. Left Ventricle Left ventricular chamber dimension is normal. Left ventricular systolic function is moderately reduced, estimated at 30-35%. There is moderately increased left ventricular wall thickness. The left ventricular diastolic function is grade I diastolic dysfunction. Right Ventricle Right ventricular chamber dimension is normal. Right ventricular systolic function is normal. Left Atria Left atrial chamber dimension is severely enlarged. Right Atria Right atrial chamber dimension is moderately enlarged. Aortic Valve The aortic valve is not well visualized. There is no aortic valve stenosis. There is mild aortic valve regurgitation. There is mild aortic valve calcification. Pulmonic Valve The pulmonic valve is not well visualized. There is no pulmonic regurgitation. Mitral Valve There is mild mitral valve regurgitation. The mitral valve annulus is mildly calcified. Tricuspid Valve There is mild tricuspid valve regurgitation. Pericardium/Pleural There is no pericardial effusion. Inferior Vena Cava Inferior vena cava is not well visualized. Aorta The aortic root size at the sinus of Valsalva is normal. Left Ventricular Outflow Tract Name Value Normal LVOT 2D LVOT Diameter 2.0 cm LVOT Doppler LVOT Peak Gradient 3 mmHg LVOT Mean Gradient 1 mmHg LVOT VTI 16 cm LVOT VTI/AV VTI Ratio 0.5 LVOT Stroke Volume 49 ml LVOT CO 3.3 l/min LVOT CI 2.4 l/min/m2 Mitral Valve Name Value Normal MV Doppler MV Decel [place] 287 cm/s2 MV PHT 63 ms MV Area (PHT) 3.5 cm2 4.0-5.0 MV Diastolic Function MV E Peak Velocity 62 cm/s MV A Peak Velocity 106 cm/s MV E/A 0.6 MV Decel Time 218 ms MV Annular TDI MV E/e' (Septal) 18.9 <=8.0 MV E/e' (Lateral) 19.9 <=8.0 MV E/e' (Average) 19.4 Tricuspid Valve Name Value Normal TV Regurgitation Doppler TR Peak Velocity 219 cm/s TR Peak Gradient 19 mmHg Estimated PAP/RSVP RV Systolic Pressure 29 mmHg <36 Aortic Valve Name Value Normal AV Doppler AV Peak Velocity 151 cm/s AV Peak Gradient 9 mmHg AV Mean Gradient 5 mmHg AV VTI 32 cm AV Area (Cont Eq VTI) 1.5 cm2 >=3.0 AV Area (Cont Eq Erd) 1.7 cm2 AV Regurgitation 2D LVOT Area 3.1 cm2 AV Regurgitation Doppler AR Decel Time 2,281 ms AR Decel [place] 134 cm/s2 AR PHT 662 ms Ventricles Name Value Normal LV Dimensions 2D/MM IVS Diastolic Thickness (2D) 1.2 cm 0.6-1.0 LVID Diastole (2D) 3.4 cm 3.8-5.2 LVIW Diastolic Thickness (2D) 1.2 cm 0.6-0.9 LVID Systole (2D) 2.2 cm 2.2-3.5 LVOT Diameter 2.0 cm LV Mass (2D Cubed) 128.76 g 67.00-162.00 LV Mass Index (2D Cubed) 92 g/m2 43-95 Relative Wall Thickness (2D) 0.70 LV Fractional Shortening/Ejection Fraction 2D/MM LV Fractional Shortening (2D) 35 % 27-45 LV EF (2D Teicholz) 65 % 54-74 LV Diastolic Volume (4C MOD) 85 ml LV EF (4C MOD) 64 % LV Diastolic Volume (2C MOD) 91 ml LV EF (2C MOD) 63 % LV Diastolic Volume (BP MOD) 93 ml 46-106 LV Diastolic Volume Index (BP MOD) 67 ml/m2 29-61 LV Systolic Volume (BP MOD) 32 ml 14-42 LV Systolic Volume Index (BP MOD) 23 ml/m2 8-24 LV EF (BP MOD) 65 % 54-74 LV Diastolic Length (4C) 7.2 cm LV Systolic Length (4C) 5.5 cm LV Stroke Volume (4C MOD) 54 ml Atria Name Value Normal LA Dimensions LA Volume (4C A-L) 31 ml LA Volume (BP A-L) 51 ml RA Dimensions RA Area (4C) 9.8 cm2 <=18.0 Report Signatures
--- NOTE | ~2024-07-08 | XR_ITS ---
XR chest 2V 07/08/2024 09:39 Indication: Shortness of breath. History of heart attack. Procedure: PA and lateral views of the chest Comparison: Comparison to multiple prior studies sequentially, with oldest reviewed study dated 08/05/2020. Findings: Borderline heart size. Mild interstitial edema. No pleural effusion, focal pneumonia, or pn eumothorax. The lungs are hyperinflated which is consistent with, but not diagnostic of chronic obstr uctive pulmonary disease. Moderate thoracic spondylosis. Impression: 1: Mild interstitial edema. Reviewed, dictated and finalized at location B. Impression: 1: Mild interstitial edema.
--- NOTE | 2024-07-08 08:51 | ECG_ITS ---
Test Date: 2024-07-08 08:57:52 Measurements Intervals [place] Rate: 82 P: 69 OR: 166 QRS: 46 QRSD: 101 T: 81 QT: 384 QTc: 449 Interpretive Statements SINUS RHYTHM POSSIBLE LEFT ATRIAL ENLARGEMENT [-0.1mV P-WAVE IN V1/V2] NONSPECIFIC ST & T-WAVE ABNORMALITY No previous ECG available for comparison Electronically Signed On 07-08-2024 15:36:12 CDT by Malvin Hopper M.D.
[2024-07-08 09:17] LABS: Basophils Percent Auto 0.4 % (0.2-1.2); Eosinophils Absolute Auto 0.1 K/mm3 (0-0.3); Eosinophils Percent Auto 1.9 % (0-4.4); Hematocrit 37.6 % (37.0-47.0); Hemoglobin 12.1 g/dL (12.0-15.0); Immature Granulocyte Absolute 0.03 K/mm3 (0.00-0.031); Immature Granulocyte Percent A 0.4 % (0-0.5); Lymphocytes Percent Auto 7.3 % (18.3-44.2); Mean Corpuscular HGB Conc 32.2 g/dl (32-36); Mean Corpuscular Volume 93.1 fl (80-100); Mean Platelet Volume 11.8 fl (7.4-10.4); Monocytes Absolute Auto 0.4 K/mm3 (0.1-0.6); Monocytes Percent Auto 5.1 % (2.6-8.5); Neutrophils Absolute Auto 5.8 K/mm3 (1.3-6.7); Neutrophils Percent Auto 84.9 % (45.5-73.1); Platelet Count Result 112 k/mm3 (150-375); Red Blood Count 4.04 M/mm3 (4.2-5.4); Red Cell Distribution Width 12.5 % (11.5-14.5); White Blood Count 6.8 K/mm3 (4.5-10.0)
[2024-07-08 09:24] LABS: Alanine Aminotransferase 53 U/L (6-35); Albumin Level 3.9 g/dL (3.5-5.1); Alkaline Phosphatase 94 U/L (38-126); Anion Gap 11 mmol/L (4-12); Aspartate Amino Transferase 62 U/L (14-36); Bilirubin,Total 0.8 mg/dL (0.2-1.3); Blood Urea Nitrogen 16 mg/dL (7-17); Calcium 8.7 mg/dL (8.4-10.2); Carbon Dioxide 26 mmol/L (22-30); Chloride 99 mmol/L (98-107); Estimated Glomerular Filt Rate > 60; Glucose 210 mg/dL (65-110); Potassium 3.9 mmol/L (3.4-5.0); Sodium 136 mmol/L (137-145)
--- NOTE | 2024-07-08 09:33 | ED.SOB ---
HPI - SOB/Dyspnea General Chief Complaint: Shortness of Breath/Dyspnea <Neptali Baez PA-C - Last Filed: 07/08/24 14:39> Stated Complaint: SOB, hypoxic <Neptali Baez PA-C - Last Filed: 07/08/24 14:39> Time Seen by Provider: 07/08/24 08:53 <Neptali Baez PA-C - Last Filed: 07/08/24 14:39> Source: patient <Neptali Baez PA-C - Last Filed: 07/08/24 14:39> Mode of arrival: ambulatory <Neptali Baez PA-C - Last Filed: 07/08/24 14:39> Limitations: no limitations <Neptali Baez PA-C - Last Filed: 07/08/24 14:39> History of Present Illness HPI Narrative: This is a 84-year-old female with PMH of CAD, T2 dm, HTN who presents to the ED for chief complaint of dyspnea and cough this started yesterday. Patient was sent here via EMS from Urgent Care this morning. States that she has been dealing with sinus congestion, postnasal drip, hoarse voice, sore throat and a somewhat productive cough. States that she feels a little short of breath and has felt some wheezing. She was noted to be 92% on room air for EMS so they put on 2 L. On arrival she is 95% on room air here in the ED. <Neptali Baez PA-C - Last Filed: 07/08/24 14:39> Related Data Home Medications: Home Medications Medication Instructions Recorded Confirmed sitagliptin phosphate 100 mg 100 mg PO DAILY 08/05/20 07/08/24 tablet (Januvia) solifenacin 10 mg tablet 10 mg PO DAILY 08/05/20 07/08/24 calcium 260 mg (phos,tribasic)-D3 600 tablet PO DAILY 01/06/23 07/08/24 25 mcg-herbal 50 mg chewable tablet (Alive Calcium-Vitamin D3) magnesium oxide 400 mg (241.3 mg 400 mg PO DAILY 01/06/23 07/08/24 magnesium) tablet (MagOx) mecobalamin (vitamin B12) 2,500 2,500 mcg PO DAILY 01/06/23 07/08/24 mcg chewable tablet multivitamin 1 tablet PO DAILY 01/06/23 07/08/24 omega-3 fatty acids 500 mg capsule 500 mg PO DAILY 01/06/23 07/08/24 turmeric root extract 500 mg 500 mg PO DAILY 01/06/23 07/08/24 capsule cholecalciferol (vitamin D3) 25 25 mcg PO DAILY 07/08/24 07/08/24 mcg (1,000 unit) tablet (Vitamin D3) [id number] 1,500 mg PO DAILY 07/08/24 07/08/24 metformin 500 mg tablet 500 mg PO BID 07/08/24 07/08/24 <Neptali Baez PA-C - Last Filed: 07/08/24 14:39> Allergies/Adverse Reactions: Allergies Allergy/AdvReac Type Severity Reaction Status Date / Time codeine Allergy Mild FELT LIKE Verified 02/17/23 10:02 SHE HAD CREEPY-CRAWLIES Sulfa (Sulfonamide Allergy Unknown RASH Verified 02/17/23 10:02 Antibiotics) <Neptali Baez PA-C - Last Filed: 07/08/24 14:39> Review of Systems Review of Systems: All systems as dictated in HPI <Neptali Baez PA-C - Last Filed: 07/08/24 14:39> [facility] Past Medical History Medical History: Medical History (Updated 07/08/24 @ 22:35 by Maricarmen Salazar APRN) Breast cancer Coronary artery disease Diabetes History of left heart catheterization Hypertension Impacted cerumen of right ear Overactive bladder <Neptali Baez PA-C - Last Filed: 07/08/24 14:39> Surgical History Surgical History: Surgical History (Updated 07/08/24 @ 22:35 by Maricarmen Salazar APRN) H/O lumpectomy History of appendectomy Status post surgical removal of malignant neoplasm of skin <Neptali Baez PA-C - Last Filed: 07/08/24 14:39> Family History Family History: Family History Sibling Hypertension Father Hypertension Mother Hypertension <Neptali Baez PA-C - Last Filed: 07/08/24 14:39> Social History Social History: Social History (Updated 07/08/24 @ 22:36 by Maricarmen Salazar APRN) Social History: Patient is a lifelong nonsmoker. She denies drug or alcohol use. Her surrogate decision maker would be her daughter Jaz Saravia if needed She lives at home alone, is , has 2 cats, she is retired. Smoking status: Never smoker Second hand tobacco smoke exposure: Yes Alcohol intake: never Substance use: never Do You Feel Safe in your Home?: Yes Lack of Transportation: No Lack of Food: Never True Current Housing: I Have Housing Concerned About Future Housing: No Difficulty Paying Gas/Electric Bills: No Difficulty Paying for Meds: No Currently Unemployed: No Education: Don't Know Difficulty w/ Childcare or Family Care: No Gender identity (if verbalized by the patient): Female Spiritual care concerns: No <ZENY Lima Last Filed: 07/08/24 14:39> Exam Narrative: GENERAL: Well-appearing, well-nourished, and in no acute distress. HEAD: Normocephalic, atraumatic. EYES: PERRLA and EOMI. ENT: Nares clear, no rhinorrhea or epistaxis. Mucous membranes moist. Oropharynx without tonsillar hypertrophy exudate or other lesions. NECK: Supple. No adenopathy or masses. CHEST: No respiratory distress. 95% room air. Mild end-expiratory wheezes heard bilaterally. HEART: Regular rate and rhythm. No murmur heard. Normal peripheral pulses. ABDOMEN: Soft, nontender, nondistended, normal active bowel sounds. MSK: Normal range of motion. No edema. SKIN: Warm, dry, no rash. NEURO: Alert and oriented x4. No focal deficits. PSYCH: Normal mood and affect. <ZENY Lima Last Filed: 07/08/24 14:39> Course Vital Signs Vital signs: Vital Signs Temperature 97.6 F 07/08/24 08:42 Pulse Rate 90 07/08/24 08:42 Respiratory Rate 17 07/08/24 08:42 Blood Pressure 186/92 H 07/08/24 08:42 Pulse Oximetry 95 07/08/24 08:42 Oxygen Delivery Room Air 07/08/24 08:42 Temperature 98.8 F 07/09/24 12:00 Pulse Rate 62 07/09/24 12:00 Respiratory Rate 18 07/09/24 12:00 Blood Pressure 156/58 H 07/09/24 12:00 Pulse Oximetry 98 07/09/24 12:00 Oxygen Delivery Room Air 07/09/24 12:00 <Neptali Baez PA-C - Last Filed: 07/08/24 14:39> Vital Signs Temperature 97.6 F 07/08/24 08:42 Pulse Rate 90 07/08/24 08:42 Respiratory Rate 17 07/08/24 08:42 Blood Pressure 186/92 H 07/08/24 08:42 Pulse Oximetry 95 07/08/24 08:42 Oxygen Delivery Room Air 07/08/24 08:42 Temperature 98.8 F 07/09/24 12:00 Pulse Rate 62 07/09/24 12:00 Respiratory Rate 18 07/09/24 12:00 Blood Pressure 156/58 H 07/09/24 12:00 Pulse Oximetry 98 07/09/24 12:00 Oxygen Delivery Room Air 07/09/24 12:00 <Elyse Richardson MD - Last Filed: 07/09/24 14:32> MDM - SOB/Dyspnea MDM Narrative Medical decision making narrative: This is a 84 yo female who presents to the ED for chief complaint of cough and dyspnea. Vitals show elevated blood pressure initially but otherwise normal. Exam shows Patient has some mild wheezing but no significant respiratory distress or hypoxia. EKG shows normal sinus rhythm. Lab work coming back remarkable for mildly elevated troponin of 0.077 initially. BNP coming back elevated at 8390 with no previous studies for comparison. No elevation of white count on CBC. RSV swabs are positive. Chest x-ray: Impression: 1: Mild interstitial edema. overall feel the patient is presentation is consistent with respiratory illness due to RSV. This may be triggering a bit of an exacerbation of underlying CHF which is what I would attribute the troponin. explained to the patient that it would be beneficial evaluation given the above. She is understanding and agreeable with this plan. Discussed with hospitalist, Maricarmen SIMON who agrees to admit the patient to IMU. patient will be admitted in stable condition. <Neptali Baez PA-C - Last Filed: 07/08/24 14:39> Lab Data Result diagrams: 07/09/24 04:11 07/09/24 04:11 <Neptali Baez PA-C - Last Filed: 07/08/24 14:39> Labs: Lab Results 07/08/24 07/08/24 07/08/24 Range/Units 09:07 09:08 09:52 WBC 6.8 (4.5-10.0) K/mm3 RBC 4.04 L (4.2-5.4) M/mm3 Hgb 12.1 (12.0-15.0) g/dL Hct 37.6 (37.0-47.0) % MCV 93.1 (80-100) fl MCH 30.0 (26-34) pg MCHC 32.2 (32-36) g/dl RDW 12.5 (11.5-14.5) % Plt Count 112 L (150-375) k/mm3 MPV 11.8 H (7.4-10.4) fl Immature Gran % (Auto) 0.4 (0-0.5) % Neut % (Auto) 84.9 H (45.5-73.1) % Lymph % (Auto) 7.3 L (18.3-44.2) % [place] % (Auto) 5.1 (2.6-8.5) % Eos % (Auto) 1.9 (0-4.4) % Baso % (Auto) 0.4 (0.2-1.2) % Lymph # (Auto) 0.50 L (0.9-3.2) K/mm3 [place] # (Auto) 0.4 (0.1-0.6) K/mm3 Eos # (Auto) 0.1 (0-0.3) K/mm3 Baso # (Auto) 0.0 (0.0-0.1) K/mm3 Abs Immat Gran (auto) 0.03 (0.00-0.031) K/mm3 Absolute Neuts (auto) 5.8 (1.3-6.7) K/mm3 Absolute Nucleated RBC 0.000 (0.0-0.012) K/mm3 Nucleated RBC % 0.0 (0.0-0.2) % % Immature Plt Fraction 7.0 (0.9-11.2) % Sodium 136 L (137-145) mmol/L Potassium 3.9 (3.4-5.0) mmol/L Chloride 99 (98-107) mmol/L Carbon Dioxide 26 (22-30) mmol/L Anion Gap 11 (4-12) mmol/L BUN 16 (7-17) mg/dL Creatinine 0.80 (0.7-1.0) mg/dL Estim Creat Clear Calc Not Reportable Estimated GFR > 60 (59 - ) Glucose 210 H (65-110) mg/dL Calcium 8.7 (8.4-10.2) mg/dL Total Bilirubin 0.8 (0.2-1.3) mg/dL AST 62 H (14-36) U/L ALT 53 H (6-35) U/L Alkaline Phosphatase 94 (38-126) U/L Troponin I 0.077 H* (0.000-0.034) ng/mL NT-Pro-B Natriuret Pep 8390 H (19.9-100) pg/mL Total Protein 7.0 (6.3-8.2) g/dL Albumin 3.9 (3.5-5.1) g/dL Influenza A (RT-PCR) Negative (Negative) Influenza B (RT-PCR) Negative (Negative) RSV (RT-PCR) Positive A (Negative) SARS-CoV-2 RNA (RT-PCR) Negative (Negative) <Neptali Baez PA-C - Last Filed: 07/08/24 14:39> Lab Results 07/08/24 07/08/24 07/08/24 Range/Units 09:07 09:08 09:52 WBC 6.8 (4.5-10.0) K/mm3 RBC 4.04 L (4.2-5.4) M/mm3 Hgb 12.1 (12.0-15.0) g/dL Hct 37.6 (37.0-47.0) % MCV 93.1 (80-100) fl MCH 30.0 (26-34) pg MCHC 32.2 (32-36) g/dl RDW 12.5 (11.5-14.5) % Plt Count 112 L (150-375) k/mm3 MPV 11.8 H (7.4-10.4) fl Immature Gran % (Auto) 0.4 (0-0.5) % Neut % (Auto) 84.9 H (45.5-73.1) % Lymph % (Auto) 7.3 L (18.3-44.2) % [place] % (Auto) 5.1 (2.6-8.5) % Eos % (Auto) 1.9 (0-4.4) % Baso % (Auto) 0.4 (0.2-1.2) % Lymph # (Auto) 0.50 L (0.9-3.2) K/mm3 [place] # (Auto) 0.4 (0.1-0.6) K/mm3 Eos # (Auto) 0.1 (0-0.3) K/mm3 Baso # (Auto) 0.0 (0.0-0.1) K/mm3 Abs Immat Gran (auto) 0.03 (0.00-0.031) K/mm3 Absolute Neuts (auto) 5.8 (1.3-6.7) K/mm3 Absolute Nucleated RBC 0.000 (0.0-0.012) K/mm3 Nucleated RBC % 0.0 (0.0-0.2) % % Immature Plt Fraction 7.0 (0.9-11.2) % Sodium 136 L (137-145) mmol/L Potassium 3.9 (3.4-5.0) mmol/L Chloride 99 (98-107) mmol/L Carbon Dioxide 26 (22-30) mmol/L Anion Gap 11 (4-12) mmol/L BUN 16 (7-17) mg/dL Creatinine 0.80 (0.7-1.0) mg/dL Estim Creat Clear Calc Not Reportable Estimated GFR > 60 (59 - ) Glucose 210 H (65-110) mg/dL Calcium 8.7 (8.4-10.2) mg/dL Total Bilirubin 0.8 (0.2-1.3) mg/dL AST 62 H (14-36) U/L ALT 53 H (6-35) U/L Alkaline Phosphatase 94 (38-126) U/L Troponin I 0.077 H* (0.000-0.034) ng/mL NT-Pro-B Natriuret Pep 8390 H (19.9-100) pg/mL Total Protein 7.0 (6.3-8.2) g/dL Albumin 3.9 (3.5-5.1) g/dL Influenza A (RT-PCR) Negative (Negative) Influenza B (RT-PCR) Negative (Negative) RSV (RT-PCR) Positive A (Negative) SARS-CoV-2 RNA (RT-PCR) Negative (Negative) <Elyse Richardson MD - Last Filed: 07/09/24 14:32> ECG Data EKG #1: ECG completion date: 07/08/24 <Neptali Baez PA-C - Last Filed: 07/08/24 14:39> ECG completion time: 08:51 <Neptali Baez PA-C - Last Filed: 07/08/24 14:39> Prior ECG tracings: available for review <Neptali Baez PA-C - Last Filed: 07/08/24 14:39> Interpretation: Sinus rhythm Rate 82 Normal QRS Normal QT No acute ischemic findings <Neptali Baez PA-C - Last Filed: 07/08/24 14:39> Discharge Plan Discharge Clinical Impression: Respiratory syncytial virus (RSV), CHF (congestive heart failure) <Neptali Baez PA-C - Last Filed: 07/08/24 14:39> Patient Disposition: Still a Patient <Neptali Baez PA-C - Last Filed: 07/08/24 14:39> Condition: Stable <Neptali Baez PA-C - Last Filed: 07/08/24 14:39> Attestation Supervising Provider Attestation WILBER did inform me this patient was being admitted. I had taken the provider report from the urgent care expressing that she was noted to be hypoxic at 92% there with a finger probe that had a waveform that appeared ok. I was aware this patient was in the ED however I did not personally examine her and was not otherwise involved in her care but was available for consultation in the department. <Elyse Richardson MD - Last Filed: 07/09/24 14:32>
--- NOTE | 2024-07-08 10:15 | PCRCNOTE ---
Treatment given late do to therapist with critical patient .
[2024-07-08] MEDS: ALBUTEROL SULFATE NEB 2.5 MG/3 ML INH 10 MG INHALATION (10:17)
[2024-07-08] MEDS: IPRATROPIUM BR 0.02% INH SOLN 0.5 MG/2.5 ML VIAL 1 MG INHALATION (10:17)
[2024-07-08 10:32] LABS: NT Pro B Type Natriuretic Pept 8390 pg/mL (19.9-100); Troponin I 0.077 ng/mL (0.000-0.034)
[2024-07-08 10:37] LABS: Influenza A QL RT-PCR Negative (Negative); Influenza B QL RT-PCR Negative (Negative); RSV RNA, RT-PCR Positive (Negative); SARS-CoV-2 RNA PCR Negative (Negative)
[2024-07-08] MEDS: FUROSEMIDE INJ 40 MG/4 ML VIAL 20 MG IV PUSH (11:06)
--- NOTE | 2024-07-08 12:14 | P.HP_ITS ---
H&P: HPI History of Present Illness Date/Time: 07/08/24 12:14 Chief Complaint: Shortness of breath and dyspnea Narrative: This is an 84 year old female with a significant past medical history of breast cancer s/p lumpectomy, CAD, Diabetes, hypertension, overactive bladder, appendectomy who presented with shortness of breath/dyspnea and cough that started yesterday. Patient reports the following history of presenting illness. Patient states that she started feeling short of breath on Thursday to with a dry cough. She woke up this morning with worsening shortness of breath and decided to go to urgent care for further evaluation. When she was at the urgent care they will found her to have a low saturation of 88 and 89% on room air and was directed to come to the hospital via EMS. When EMS arrived they placed 2 L nasal cannula and saturation improved to 92%. On arrival to the emergency room she was back on room air with oxygen saturation of 95%. Patient denies any fever, chills, nausea, vomiting, diarrhea, abdominal pain, chest pain, headache, lightheadedness, dizziness. She denied any recent sick contacts. She does keep up with her immunizations however has not had her flu or COVID shot this year. She states that she feels overall improved than when she first came in and she states that her breathing is not as labored. She would like to go home in the morning. Workup in the hospital a chest x-ray which showed mild interstitial edema. Initial labs showed a normal white blood cell count of 6.8, platelet count 112, sodium 136, blood sugar 210, AST 62, ALT 53, troponin I 0.077, proBNP 8390. Respiratory panel was positive for RSV. EKG showed sinus rhythm with a rate of 82, QTC 449. Patient was given DuoNeb and 20 mg IV push Lasix while in the ED. Review of Systems Review of Systems: All systems reviewed & are unremarkable except as noted in HPI and below Constitutional: Constitutional: Reports as per HPI and Reports no additional constitutional complaints Eyes: Eyes: Reports as per HPI and Reports no additional eye complaints ENT: Reports system reviewed and no additional complaints, except as documented and Reports as per HPI Cardiovascular: Cardiovascular: Reports as per HPI and Reports no additional cardiovascular complaints Respiratory: Respiratory: Reports as per HPI and Reports no additional respiratory complaints Gastrointestinal: Gastrointestinal: Reports as per HPI and Reports no additional gastrointestinal complaints Genitourinary: Genitourinary: Reports no additional female genitourinary complaints and Reports as per HPI Musculoskeletal: Musculoskeletal: Reports no additional musculoskeletal complaints and Reports as per HPI Integumentary/Breasts: Skin/Breast: Reports system reviewed and no additional complaints, except as docu and Reports as per HPI Neurologic: Reports system reviewed and no additional complaints, except as documented and Reports as per HPI Psychiatric: Psychiatric: Reports no additional psychiatric complaints and Reports as per HPI [facility] Past Medical History Medical History (Updated 07/08/24 @ 22:35 by Maricarmen Salazar APRN) Breast cancer Coronary artery disease Diabetes History of left heart catheterization Hypertension Impacted cerumen of right ear Overactive bladder Surgical History Surgical History (Updated 07/08/24 @ 22:35 by Maricarmen Salazar APRN) H/O lumpectomy History of appendectomy Status post surgical removal of malignant neoplasm of skin Family History Family History Sibling Hypertension Father Hypertension Mother Hypertension Social History Social History (Updated 07/08/24 @ 22:36 by Maricarmen Salazar APRN) Social History: Patient is a lifelong nonsmoker. She denies drug or alcohol use. Her surrogate decision maker would be her daughter Jaz Saravia if needed She lives at home alone, is , has 2 cats, she is retired. Smoking status: Never smoker Second hand tobacco smoke exposure: Yes Alcohol intake: never Substance use: never Do You Feel Safe in your Home?: Yes Lack of Transportation: No Lack of Food: Never True Current Housing: I Have Housing Concerned About Future Housing: No Difficulty Paying Gas/Electric Bills: No Difficulty Paying for Meds: No Currently Unemployed: No Education: Don't Know Difficulty w/ Childcare or Family Care: No Gender identity (if verbalized by the patient): Female Spiritual care concerns: No Meds Home Medications and Allergies Home Medications Medication Instructions Recorded Confirmed Type sitagliptin phosphate 100 mg 100 mg PO DAILY 08/05/20 07/08/24 History tablet (Januvia) solifenacin 10 mg tablet 10 mg PO DAILY 08/05/20 07/08/24 History aspirin 81 mg chewable tablet 81 mg PO DAILY@0800 #30 tabs 08/08/20 07/08/24 Rx (Children's Aspirin) carvedilol 6.25 mg tablet (Coreg) 6.25 mg PO Q12HR #60 tabs 08/08/20 07/08/24 Rx lisinopril 10 mg tablet 10 mg PO DAILY #30 tabs 08/08/20 07/08/24 Rx rosuvastatin 10 mg tablet (Crestor) 10 mg PO DAILY #30 tabs 08/08/20 07/08/24 Rx calcium 260 mg (phos,tribasic)-D3 600 tablet PO DAILY 01/06/23 07/08/24 History 25 mcg-herbal 50 mg chewable tablet (Alive Calcium-Vitamin D3) magnesium oxide 400 mg (241.3 mg 400 mg PO DAILY 01/06/23 07/08/24 History magnesium) tablet (MagOx) mecobalamin (vitamin B12) 2,500 2,500 mcg PO DAILY 01/06/23 07/08/24 History mcg chewable tablet multivitamin 1 tablet PO DAILY 01/06/23 07/08/24 History omega-3 fatty acids 500 mg capsule 500 mg PO DAILY 01/06/23 07/08/24 History turmeric root extract 500 mg 500 mg PO DAILY 01/06/23 07/08/24 History capsule cholecalciferol (vitamin D3) 25 25 mcg PO DAILY 07/08/24 07/08/24 History mcg (1,000 unit) tablet (Vitamin D3) [id number] 1,500 mg PO DAILY 07/08/24 07/08/24 History metformin 500 mg tablet 500 mg PO BID 07/08/24 07/08/24 History Allergies Allergy/AdvReac Type Severity Reaction Status Date / Time codeine Allergy Mild FELT LIKE Verified 02/17/23 10:02 SHE HAD CREEPY-CRAWLIES Sulfa (Sulfonamide Allergy Unknown RASH Verified 02/17/23 10:02 Antibiotics) Vital Signs Vital Signs - 24 hr 07/08/24 08:42 07/08/24 10:00 07/08/24 10:20 Temperature 97.6 F Pulse Rate 90 71 77 Respiratory Rate 17 20 17 Blood Pressure 186/92 H 169/99 H Pulse Oximetry 95 96 Oxygen Delivery Room Air 07/08/24 11:09 07/08/24 12:13 Temperature Pulse Rate 74 76 Respiratory Rate 16 13 Blood Pressure 186/81 H 156/60 H Pulse Oximetry 100 94 Oxygen Delivery Exam Narrative: General: In no acute distress, well nourished Head: atraumatic, no encephalopathy Eyes: PERRLA, sclera clear ENT: moist mucous membranes, nasal passages clear Neck: supple, no JVD, no adenopathy, trachea midline Cardiac: Normal S1 and S2. No murmur, gallops or friction rubs, peripheral pulses intact. Respiratory: Inspiratory and expiratory wheezing bilaterally, tight barky cough that is nonproductive, currently on room air, no acute respiratory distress seen, no use of accessory muscles Gastrointestinal: soft, non-distended, non-tender, normoactive bowel sounds. : voiding without difficulty. Extremities: moves all extremities well, no edema, good ROM, strength 5/5 Skin: Left elbow sutures from skin cancer removal covered with dry dressing Neuro: Alert and oriented x4, cranial nerves intact, no neuro deficits. Psych: normal mood, normal affect, interactive H&P: Results Labs Labs: Short CBC 07/08/24 Range/Units 09:08 WBC 6.8 (4.5-10.0) K/mm3 Hgb 12.1 (12.0-15.0) g/dL Hct 37.6 (37.0-47.0) % Plt Count 112 L (150-375) k/mm3 BMP 07/08/24 09:08 Sodium 136 L Potassium 3.9 Chloride 99 Carbon Dioxide 26 BUN 16 Creatinine 0.80 Glucose 210 H Calcium 8.7 Cardiac Enzymes 07/08/24 Range/Units 09:07 Troponin I 0.077 H* (0.000-0.034) ng/mL Liver Function 07/08/24 Range/Units 09:08 Total Bilirubin 0.8 (0.2-1.3) mg/dL AST 62 H (14-36) U/L ALT 53 H (6-35) U/L Alkaline Phosphatase 94 (38-126) U/L Albumin 3.9 (3.5-5.1) g/dL Imaging Chest x-ray: Radiologist's impression: XR chest 2V 07/08/2024 09:39 Indication: Shortness of breath. History of heart attack. Procedure: PA and lateral views of the chest Comparison: Comparison to multiple prior studies sequentially, with oldest reviewed study dated 08/05/2020. Findings: Borderline heart size. Mild interstitial edema. No pleural effusion, focal pneumonia, or pneumothorax. The lungs are hyperinflated which is consistent with, but not diagnostic of chronic obstructive pulmonary disease. Moderate thoracic spondylosis. Impression: 1: Mild interstitial edema. Reviewed, dictated and finalized at location B. Assessment and Plan Assessment and plan (1) RSV bronchitis: Code(s): J20.5 - Acute bronchitis due to respiratory syncytial virus Status: Acute Assessment and Plan: patient reports cough and congestion x1 day with associated dyspnea * respiratory panel positive for RSV * continue DuoNeb breathing treatments * continue supportive care * 60 mg IV push Solu-Medrol ordered due to inspiratory and expiratory wheezing and tight cough * Will give 40 mg IV push Solu-Medrol in the morning * If she goes home tomorrow she will likely need a steroid taper * Robitussin ordered (2) CHF (congestive heart failure): Code(s): I50.9 - Heart failure, unspecified Status: Acute Assessment and Plan: * proBNP a 1390 * no echo reported in EMR * likely a new diagnosis * patient was given 20 mg IV push Lasix in the ED * Cardiology consulted and reviewed EMR, patient has history of heart failure with reduced ejection fraction of 30-35%. Patient has a known history of ischemic cardiomyopathy from a STEMI back in 2019. * chest x-ray showing mild interstitial edema * continue lisinopril and beta-orlin (3) Elevated troponin: Code(s): R79.89 - Other specified abnormal findings of blood chemistry Status: Acute Assessment and Plan: * troponin 0.077 >0.195 <0.182 * EKG did not show any ST elevation, patient asymptomatic * likely demand ischemia from CHF exacerbation due to RSV * cardiology following * continue to trend (4) Thrombocytopenia: Code(s): D69.6 - Thrombocytopenia, unspecified Status: Chronic Assessment and Plan: * initial platelet count 112 * appears to be chronic * will check vitamin B12, folate, and copper levels (5) HTN (hypertension): Code(s): I10 - Essential (primary) hypertension Status: Chronic Assessment and Plan: * blood pressures ranging 140/61 to 197/78 * continue Coreg and lisinopril (6) T2DM (type 2 diabetes mellitus): Code(s): E11.9 - Type 2 diabetes mellitus without complications Status: Chronic Assessment and Plan: * Blood sugar 210 -243 * Hgb A1C 6.2 on 08/06/2020 * repeat hemoglobin A1c was 7.1 * Accu checks AC/HS * low-dose SSI ordered * hypoglycemic protocol in place * Diabetic diet ordered * hold glimepiride and Januvia (7) Skin cancer of arm: Code(s): C44.601 - Unspecified malignant neoplasm of skin of unspecified upper limb, including shoulder Status: Acute Assessment and Plan: * Left elbow sutures from procedure to remove skin cancer, dry dressing in place Quality VTE Prophylaxis VTE prophylaxis: pharmacologic ordered Hospitalist MIPS Advance Care Plan I have confirmed that the patient's Advanced Care Plan is present, code status is documented, or surrogate decision maker is listed in patient medical record.: Yes Medication Reconciliation I have utilized all available resources to obtain, update and review the patients current medications (includes all prescriptions, OTC, herbals, cannabis, and nutritional supplements).: Yes
--- NOTE | 2024-07-08 12:16 | PC.NURSE ---
Meal tray ordered for pt
--- NOTE | 2024-07-08 12:39 | ECG_ITS ---
Test Date: 2024-07-08 12:46:41 Measurements Intervals [place] Rate: 74 P: 51 HI: 161 QRS: -24 QRSD: 99 T: 82 QT: 404 QTc: 451 Interpretive Statements SINUS RHYTHM POSSIBLE LEFT ATRIAL ENLARGEMENT [-0.1mV P-WAVE IN V1/V2] BORDERLINE LEFT AXIS DEVIATION [QRS AXIS < -20] NONSPECIFIC ST & T-WAVE ABNORMALITY Compared to ECG 07/08/2024 08:57:52 No significant changes Electronically Signed On 07-08-2024 15:38:43 CDT by Malvin Hopper M.D.
--- NOTE | 2024-07-08 13:09 | ADMGEN ---
This patient, Tonya Scherer, was admitted to IMU Room 200-01. Patient/family oriented to hospital policies and general routines including ID bracelet, bed and alarms, visiting hours, pain management, procedures, bathroom and other care routines, personal items, smoking policy, room service/diet, and visiting hours. Information on how to activate the Rapid Response Team has been discussed. Patient/Family are encouraged to report perceived risks to care and to ask questions if they do not understand what they are told or what they should do.
[2024-07-08] MEDS: IPRATROPIUM 0.5 MG/ALBUTEROL SULFATE 2.5 MG AMPUL.NEB 3 ML INHALATION (13:10)
[2024-07-08 13:25] LABS: Hemoglobin A1C 7.1 % (<5.7)
[2024-07-08 13:34] LABS: Troponin I 0.195 ng/mL (0.000-0.034)
[2024-07-08 15:52] LABS: Troponin I 0.182 ng/mL (0.000-0.034)
--- NOTE | 2024-07-08 16:24 | P.CONCA_ITS ---
Assessment and Plan Assessment and plan (1) Respiratory syncytial virus (RSV): Code(s): B33.8 - Other specified viral diseases Status: Acute Assessment and Plan: Continue supportive care. (2) Heart failure with reduced ejection fraction (HFrEF, <= 40%): Code(s): I50.20 - Unspecified systolic (congestive) heart failure Status: Acute Assessment and Plan: LVEF is 30-35%. Has known ischemic cardiomyopathy from STEMI back in 2020 (LVEF 35% per LV gram, 45-50% per TTE). Had mild pulmonary edema on CXR on admission, improved with IV Lasix. In setting of RSV infection as well. I don't think she will need a maintenance dose of Lasix. Continue home beta orlin and ACEi. (3) Elevated troponin: Code(s): R79.89 - Other specified abnormal findings of blood chemistry Status: Acute Assessment and Plan: Mildly elevated. EKG without ischemic changes. No chest pain. Doubt ACS. (4) HTN (hypertension): Code(s): I10 - Essential (primary) hypertension Status: Chronic Assessment and Plan: Continue home antihypertensives. (5) T2DM (type 2 diabetes mellitus): Code(s): E11.9 - Type 2 diabetes mellitus without complications Status: Chronic Assessment and Plan: Management as per primary team. (6) Coronary artery disease: Code(s): I25.10 - Atherosclerotic heart disease of [place] coronary artery without angina pectoris Status: Acute Assessment and Plan: Stable. Continue home ASA and statin. History of Present Illness History of Present Illness Consult date/time: 07/08/24 16:24 Requesting physician: Maricarmen Salazar APRN Consult reason: Other (Elevated troponin) Reason For Visit: RSV, CHF Narrative: This is an 84 year old female with coronary artery disease with anterior STEMI s/p PCI to the LAD in July 2020, ischemic cardiomyopathy who follows with Dr. Tong. She presented to [facility] due to shortness of breath. No chest pain. Workup shows NT pro BNP of 8390. Troponins are 0.077, 0.195, 0.182. She tested positive for RSV. CXR with mild interstitial edema. EKGs with sinus rhythm with nonspecific STTW abnormality. Echo with LVEF 30-35%. She was given a dose of IV Lasix. States she feels great now and wants to go home. Review of Systems Review of Systems: All systems reviewed & are unremarkable except as noted in HPI and below (HPI) [facility] Past Medical History Medical History (Updated 07/08/24 @ 16:35 by Malvin Hopper MD) Breast cancer Coronary artery disease Diabetes History of left heart catheterization Hypertension Impacted cerumen of right ear Overactive bladder Surgical History Surgical History H/O lumpectomy History of appendectomy Family History Family History Sibling Hypertension Father Hypertension Mother Hypertension Social History Social History Social History: Patient is a lifelong nonsmoker. She denies drug or alcohol use. Her surrogate decision maker would be her daughter Jaz Saravia if needed Smoking status: Never smoker Second hand tobacco smoke exposure: Yes Alcohol intake: never Substance use: never Do You Feel Safe in your Home?: Yes Lack of Transportation: No Lack of Food: Never True Current Housing: I Have Housing Concerned About Future Housing: No Difficulty Paying Gas/Electric Bills: No Difficulty Paying for Meds: No Currently Unemployed: No Education: Don't Know Difficulty w/ Childcare or Family Care: No Gender identity (if verbalized by the patient): Female Spiritual care concerns: No Meds Home Medications and Allergies Home Medications Medication Instructions Recorded Confirmed Type sitagliptin phosphate 100 mg 100 mg PO DAILY 08/05/20 07/08/24 History tablet (Januvia) solifenacin 10 mg tablet 10 mg PO DAILY 08/05/20 07/08/24 History aspirin 81 mg chewable tablet 81 mg PO DAILY@0800 #30 tabs 08/08/20 07/08/24 Rx (Children's Aspirin) carvedilol 6.25 mg tablet (Coreg) 6.25 mg PO Q12HR #60 tabs 08/08/20 07/08/24 Rx lisinopril 10 mg tablet 10 mg PO DAILY #30 tabs 08/08/20 07/08/24 Rx rosuvastatin 10 mg tablet (Crestor) 10 mg PO DAILY #30 tabs 08/08/20 07/08/24 Rx calcium 260 mg (phos,tribasic)-D3 600 tablet PO DAILY 01/06/23 07/08/24 History 25 mcg-herbal 50 mg chewable tablet (Alive Calcium-Vitamin D3) magnesium oxide 400 mg (241.3 mg 400 mg PO DAILY 01/06/23 07/08/24 History magnesium) tablet (MagOx) mecobalamin (vitamin B12) 2,500 2,500 mcg PO DAILY 01/06/23 07/08/24 History mcg chewable tablet multivitamin 1 tablet PO DAILY 01/06/23 07/08/24 History omega-3 fatty acids 500 mg capsule 500 mg PO DAILY 01/06/23 07/08/24 History turmeric root extract 500 mg 500 mg PO DAILY 01/06/23 07/08/24 History capsule cholecalciferol (vitamin D3) 25 25 mcg PO DAILY 07/08/24 07/08/24 History mcg (1,000 unit) tablet (Vitamin D3) [id number] 1,500 mg PO DAILY 07/08/24 07/08/24 History metformin 500 mg tablet 500 mg PO BID 07/08/24 07/08/24 History Allergies Allergy/AdvReac Type Severity Reaction Status Date / Time codeine Allergy Mild FELT LIKE Verified 02/17/23 10:02 SHE HAD CREEPY-CRAWLIES Sulfa (Sulfonamide Allergy Unknown RASH Verified 02/17/23 10:02 Antibiotics) Vital Signs Vital Signs - 24 hr 07/08/24 08:42 07/08/24 10:00 07/08/24 10:20 Temperature 36.4 C Pulse Rate 90 71 77 Respiratory Rate 17 20 17 Blood Pressure 186/92 H 169/99 H Pulse Oximetry 95 96 Oxygen Delivery Room Air 07/08/24 11:09 07/08/24 12:13 07/08/24 12:19 Temperature Pulse Rate 74 76 Respiratory Rate 16 13 Blood Pressure 186/81 H 156/60 H Pulse Oximetry 100 94 94 Oxygen Delivery Room Air 07/08/24 12:57 07/08/24 13:15 07/08/24 13:10 Temperature 36.9 C 37.2 C Pulse Rate 81 80 82 Respiratory Rate 14 20 20 Blood Pressure 160/88 H 157/52 H Pulse Oximetry 100 100 Oxygen Delivery 07/08/24 13:19 07/08/24 15:27 Temperature 37.5 C Pulse Rate 80 77 Respiratory Rate 18 20 Blood Pressure 140/61 Pulse Oximetry 96 Oxygen Delivery Exam Const: General: comfortable and no acute distress HENMT: Mouth: Yes moist mucous membranes Eyes: General: appearance normal, both eyes and all related structures Sclera: sclerae normal Resp: Effort & Inspection: normal respiratory effort Auscultation: clear to auscultation bilaterally Cardio: Rate: regular rate Rhythm: regular rhythm Heart sounds: no murmurs Skin: General skin exam: normal color Neuro: Speech: normal speech Psych: Mental Status: mental status grossly normal Affect: normal affect Results Labs and Meds 07/08/24 09:08 07/08/24 09:08 Lab results: Cardiac Enzymes 07/08/24 07/08/24 07/08/24 Range/Units 09:07 09:08 13:04 AST 62 H (14-36) U/L Troponin I 0.077 H* 0.195 H* D (0.000-0.034) ng/mL 07/08/24 Range/Units 15:14 AST (14-36) U/L Troponin I 0.182 H* (0.000-0.034) ng/mL CBC 07/08/24 Range/Units 09:08 WBC 6.8 (4.5-10.0) K/mm3 RBC 4.04 L (4.2-5.4) M/mm3 Hgb 12.1 (12.0-15.0) g/dL Hct 37.6 (37.0-47.0) % Plt Count 112 L (150-375) k/mm3 Lymph # (Auto) 0.50 L (0.9-3.2) K/mm3 [place] # (Auto) 0.4 (0.1-0.6) K/mm3 Eos # (Auto) 0.1 (0-0.3) K/mm3 Baso # (Auto) 0.0 (0.0-0.1) K/mm3 Comprehensive Metabolic Panel 07/08/24 Range/Units 09:08 Sodium 136 L (137-145) mmol/L Potassium 3.9 (3.4-5.0) mmol/L Chloride 99 (98-107) mmol/L Carbon Dioxide 26 (22-30) mmol/L BUN 16 (7-17) mg/dL Creatinine 0.80 (0.7-1.0) mg/dL Glucose 210 H (65-110) mg/dL Calcium 8.7 (8.4-10.2) mg/dL AST 62 H (14-36) U/L ALT 53 H (6-35) U/L Alkaline Phosphatase 94 (38-126) U/L Total Protein 7.0 (6.3-8.2) g/dL Albumin 3.9 (3.5-5.1) g/dL Patient Weight 07/08/24 23:59 Weight 45.5 kg
[2024-07-08 16:32] LABS: Glucose Point of Care 243 mg/dl (65-105)
[2024-07-08] MEDS: INSULIN ASPART (*BKC) 100 UNITS/ML SUB-Q ×2 (17:09→21:13)
[2024-07-08 20:29] LABS: Glucose Point of Care 203 mg/dl (65-105)
[2024-07-08] MEDS: carvediloL 6.25 MG TABLET PO (21:13)
[2024-07-08] MEDS: methylPREDNISolone SOD SUCC 125 MG VIAL 60 MG IV PUSH (22:51)
[2024-07-08] MEDS: guaiFENesin/DEXTROMETHORPHAN 10 ML UDC PO (22:51)
[2024-07-08 23:03] LABS: Folic Acid > 20.0 ng/mL (2.76->20); Vitamin B12 > 1000.0 pg/mL (239-931)
[2024-07-09] VITALS (10 sets, daily range): BP systolic 156–164; BP diastolic 58–72; PULSE 57–77; RESP 18–20; TEMP 36.7–37.1; O2SAT 93–98
[2024-07-09 04:45] LABS: Hematocrit 36.8 % (37.0-47.0); Hemoglobin 11.6 g/dL (12.0-15.0); Immature Granulocyte Absolute 0.03 K/mm3 (0.00-0.031); Immature Granulocyte Percent A 0.5 % (0-0.5); Lymphocytes Absolute Auto 0.49 K/mm3 (0.9-3.2); Lymphocytes Percent Auto 8.8 % (18.3-44.2); Mean Corpuscular HGB Conc 31.5 g/dl (32-36); Mean Corpuscular Hemoglobin 29.3 pg (26-34); Mean Corpuscular Volume 92.9 fl (80-100); Mean Platelet Volume 12.1 fl (7.4-10.4); Monocytes Absolute Auto 0.1 K/mm3 (0.1-0.6); Monocytes Percent Auto 2.5 % (2.6-8.5); Neutrophils Absolute Auto 4.9 K/mm3 (1.3-6.7); Neutrophils Percent Auto 88.2 % (45.5-73.1); Platelet Count Result 125 k/mm3 (150-375); Red Blood Count 3.96 M/mm3 (4.2-5.4); Red Cell Distribution Width 12.7 % (11.5-14.5); White Blood Count 5.6 K/mm3 (4.5-10.0)
[2024-07-09 04:56] LABS: Alanine Aminotransferase 39 U/L (6-35); Albumin Level 3.7 g/dL (3.5-5.1); Alkaline Phosphatase 71 U/L (38-126); Anion Gap 11 mmol/L (4-12); Aspartate Amino Transferase 41 U/L (14-36); Bilirubin,Total 0.7 mg/dL (0.2-1.3); Blood Urea Nitrogen 20 mg/dL (7-17); Calcium 8.5 mg/dL (8.4-10.2); Carbon Dioxide 27 mmol/L (22-30); Chloride 98 mmol/L (98-107); Estimated Glomerular Filt Rate > 60; Glucose 238 mg/dL (65-110); Potassium 3.6 mmol/L (3.4-5.0); Sodium 136 mmol/L (137-145)
[2024-07-09 08:06] LABS: Glucose Point of Care 255 mg/dl (65-105)
[2024-07-09] MEDS: CHOLECALCIFEROL 1,000 UNITS TABLET 1000 UNITS PO (08:50)
[2024-07-09] MEDS: methylPREDNISolone SOD SUCC 40 MG VIAL IV PUSH (08:50)
[2024-07-09] MEDS: ASPIRIN 81 MG CHEWABLE TABLET PO (08:51)
[2024-07-09] MEDS: INSULIN ASPART (*BKC) 100 UNITS/ML SUB-Q ×2 (08:52→12:16)
[2024-07-09] MEDS: MULTIVITAMINS THERAPEUTIC TAB (*BKC) 1 TABLET PO (08:52)
[2024-07-09] MEDS: carvediloL 6.25 MG TABLET PO (08:52)
[2024-07-09] MEDS: ROSUVASTATIN 10 MG TABLET PO (08:52)
[2024-07-09] MEDS: lisinopriL 10 MG TABLET PO (08:55)
--- NOTE | 2024-07-09 09:33 | P.DS_ITS ---
DS: Admitting Diagnosis Discharge Date 07/09/2024 Admitting Diagnosis RSV Bronchitis DS: Discharge Diagnosis Discharge Diagnosis (1) RSV bronchitis: Code(s): J20.5 - Acute bronchitis due to respiratory syncytial virus Status: Acute Assessment and Plan: 07/08 patient reported cough and congestion x1 day with associated dyspnea * respiratory panel positive for RSV * DuoNeb breathing treatments * Encouraged nutrition, hydration * 60 mg IV push Solu-Medrol upon admission, then 40 mg IV day 2, Prednisone 20 mg daily for 5 days. (2) CHF (congestive heart failure): Code(s): I50.9 - Heart failure, unspecified Status: Acute Assessment and Plan: * proBNP a 1390 * no echo reported in EMR * patient was given 20 mg IV push Lasix in the ED * Cardiology consulted and reviewed EMR, patient has history of heart failure with reduced ejection fraction of 30-35%. Patient has a known history of ischemic cardiomyopathy from a STEMI back in 2019. * chest x-ray showing mild interstitial edema * continue lisinopril and beta-orlin, no chronic furosemide (3) Elevated troponin: Code(s): R79.89 - Other specified abnormal findings of blood chemistry Status: Acute Assessment and Plan: * troponin 0.077 >0.195 <0.182 * EKG did not show any ST elevation, patient asymptomatic * likely demand ischemia from CHF exacerbation due to RSV * cardiology following * continue to trend (4) Thrombocytopenia: Code(s): D69.6 - Thrombocytopenia, unspecified Status: Chronic Assessment and Plan: * initial platelet count 112 * appears to be chronic * will check vitamin B12, folate, and copper levels (all WNL, except Cu pending_ (5) HTN (hypertension): Code(s): I10 - Essential (primary) hypertension Status: Chronic Assessment and Plan: * blood pressures ranging 140/61 to 197/78, 164/64 at discharge * continue Coreg and lisinopril * cardiology to adjust meds further as outpatient (6) T2DM (type 2 diabetes mellitus): Code(s): E11.9 - Type 2 diabetes mellitus without complications Status: Chronic Assessment and Plan: * Blood sugar 210 -243 * Hgb A1C 6.2 on 08/06/2020 * repeat hemoglobin A1c was 7.1 * Accu checks AC/HS * low-dose SSI ordered while inpatient * hypoglycemic protocol in place * Diabetic diet ordered * Resume glimepiride and Januvia upon discharge (7) Skin cancer of arm: Code(s): C44.601 - Unspecified malignant neoplasm of skin of unspecified upper limb, including shoulder Status: Acute Assessment and Plan: * Left elbow sutures from procedure to remove skin cancer, dry dressing in place DS: Summary Hospital Course Hospital Course: Admitted July 08 with cough wheezing and shortness of breath. Stage she felt as if she could not breathe. Was treated with IV steroids and bronchodilators. Improved dramatically overnight. Never required oxygen. Was up and about independently in her room. Performing ADLs independently. Wished to go home. Time Spent with Patient Time attestation: Total time spent providing and/or coordinating discharge services: Exam Narrative: General: In no acute distress, well nourished Head: atraumatic, no encephalopathy Eyes: PERRLA, sclera clear ENT: moist mucous membranes, nasal passages clear Neck: supple, no JVD, no adenopathy, trachea midline Cardiac: Normal S1 and S2. No murmur, gallops or friction rubs, peripheral pulses intact. Respiratory: Slightly coarse breath sounds without crackles or wheezes. No tachypnea or increased effort. Gastrointestinal: soft, non-distended, non-tender, normoactive bowel sounds. : voiding without difficulty. Extremities: moves all extremities well, no edema, good ROM, strength 5/5 Skin: Left elbow sutures from skin cancer removal covered with dry dressing Neuro: Alert and oriented x4, cranial nerves intact to observation. Psych: normal mood, normal affect, interactive DS: Data Data Completed and Pending Labs on day of discharge: Labs from last 24 hours 07/09/24 07/09/24 07/08/24 07:36 04:11 21:30 WBC 5.6 RBC 3.96 L Hgb 11.6 L Hct 36.8 L MCV 92.9 MCH 29.3 MCHC 31.5 L RDW 12.7 Plt Count 125 L MPV 12.1 H Immature Gran % (Auto) 0.5 Neut % (Auto) 88.2 H Lymph % (Auto) 8.8 L [place] % (Auto) 2.5 L Eos % (Auto) 0.0 Baso % (Auto) 0.0 L Lymph # (Auto) 0.49 L [place] # (Auto) 0.1 Eos # (Auto) 0.0 Baso # (Auto) 0.0 Abs Immat Gran (auto) 0.03 Absolute Neuts (auto) 4.9 Absolute Nucleated RBC 0.000 Nucleated RBC % 0.0 Sodium 136 L Potassium 3.6 Chloride 98 Carbon Dioxide 27 Anion Gap 11 BUN 20 H Creatinine 0.80 Estim Creat Clear Calc Not Reportable Estimated GFR > 60 Glucose 238 H POC Capillary Glucose 255 H Hemoglobin A1c Calcium 8.5 Copper Pending Total Bilirubin 0.7 AST 41 H ALT 39 H Alkaline Phosphatase 71 Troponin I NT-Pro-B Natriuret Pep Total Protein 7.0 Albumin 3.7 Vitamin B12 > 1000.0 H Folate > 20.0 H TSH Influenza A (RT-PCR) Influenza B (RT-PCR) RSV (RT-PCR) SARS-CoV-2 RNA (RT-PCR) 07/08/24 07/08/24 07/08/24 20:08 16:25 15:14 WBC RBC Hgb Hct MCV MCH MCHC RDW Plt Count MPV Immature Gran % (Auto) Neut % (Auto) Lymph % (Auto) [place] % (Auto) Eos % (Auto) Baso % (Auto) Lymph # (Auto) [place] # (Auto) Eos # (Auto) Baso # (Auto) Abs Immat Gran (auto) Absolute Neuts (auto) Absolute Nucleated RBC Nucleated RBC % Sodium Potassium Chloride Carbon Dioxide Anion Gap BUN Creatinine Estim Creat Clear Calc Estimated GFR Glucose POC Capillary Glucose 203 H 243 H Hemoglobin A1c Calcium Copper Total Bilirubin AST ALT Alkaline Phosphatase Troponin I 0.182 H* NT-Pro-B Natriuret Pep Total Protein Albumin Vitamin B12 Folate TSH Influenza A (RT-PCR) Influenza B (RT-PCR) RSV (RT-PCR) SARS-CoV-2 RNA (RT-PCR) 07/08/24 07/08/24 07/08/24 13:04 09:52 09:07 WBC RBC Hgb Hct MCV MCH MCHC RDW Plt Count MPV Immature Gran % (Auto) Neut % (Auto) Lymph % (Auto) [place] % (Auto) Eos % (Auto) Baso % (Auto) Lymph # (Auto) [place] # (Auto) Eos # (Auto) Baso # (Auto) Abs Immat Gran (auto) Absolute Neuts (auto) Absolute Nucleated RBC Nucleated RBC % Sodium Potassium Chloride Carbon Dioxide Anion Gap BUN Creatinine Estim Creat Clear Calc Estimated GFR Glucose POC Capillary Glucose Hemoglobin A1c 7.1 H Calcium Copper Total Bilirubin AST ALT Alkaline Phosphatase Troponin I 0.195 H* D 0.077 H* NT-Pro-B Natriuret Pep 8390 H Total Protein Albumin Vitamin B12 Folate TSH 1.990 Influenza A (RT-PCR) Negative Influenza B (RT-PCR) Negative RSV (RT-PCR) Positive A SARS-CoV-2 RNA (RT-PCR) Negative Discharge Plan Discharge Consulting providers: Maricarmen Salazar; Malvin Hopper Discharging Clinician: Raudel Jarrett Patient Disposition: Home, Self-Care Activity: as tolerated and other - see discharge instructions Diet: heart healthy and diabetic Discharge Instructions: Wear a mask when in public or when within 6 feet of anyone for the next 6 days. Stand Alone Forms: General Discharge Information Follow-up/Referrals: Clifford Tong MD [Physician] - Call for Appointment Cruz,yR Mathis MD [Primary Care Provider] - Call for Appointment Discharge Medications: New acetaminophen 325 mg Tablet 650 mg PO Q4H PRN (Reason: Mild Pain (1-3) Or Fever) Qty: 30 0RF prednisone 20 mg tablet 20 mg PO DAILY Qty: 5 0RF Continued mecobalamin (vitamin B12) 2,500 mcg tablet,chewable 2,500 mcg PO DAILY Alive Calcium-Vitamin D3 260 mg calcium- 25 mcg-50 mg tablet,chewable 600 tablet PO DAILY turmeric root extract 500 mg capsule 500 mg PO DAILY multivitamin Tablet 1 tablet PO DAILY omega-3 fatty acids 500 mg capsule 500 mg PO DAILY magnesium oxide [MagOx] 400 mg (241.3 mg magnesium) tablet 400 mg PO DAILY cholecalciferol (vitamin D3) [Vitamin D3] 25 mcg (1,000 unit) Tablet 25 mcg PO DAILY [id number] 1,500 mg PO DAILY metformin 500 mg tablet 500 mg PO BID solifenacin 10 mg tablet 10 mg PO DAILY Januvia 100 mg tablet 100 mg PO DAILY aspirin [Children's Aspirin] 81 mg Tablet,Chewable 81 mg PO DAILY@0800 Qty: 30 5RF carvedilol [Coreg] 6.25 mg Tablet 6.25 mg PO Q12HR Qty: 60 5RF lisinopril 10 mg Tablet 10 mg PO DAILY Qty: 30 5RF rosuvastatin [Crestor] 10 mg Tablet 10 mg PO DAILY Qty: 30 0RF Date of admission: 07/08/24 12:30 Primary Care Provider: Anthony,Ry Mathis Admitting Provider: Juan Segovia Attending physician on admission: Juan Segovia Condition: Stable
--- NOTE | 2024-07-09 11:36 | P.PNCA_ITS ---
Progress Note: A&P Assessment and Plan (1) Respiratory syncytial virus (RSV): Code(s): B33.8 - Other specified viral diseases Status: Acute Assessment and Plan: Continue supportive care. (2) Heart failure with reduced ejection fraction (HFrEF, <= 40%): Code(s): I50.20 - Unspecified systolic (congestive) heart failure Status: Acute Assessment and Plan: LVEF is 30-35%. Has known ischemic cardiomyopathy from STEMI back in 2020 (LVEF 35% per LV gram, 45-50% per TTE). Had mild pulmonary edema on CXR on admission, improved with IV Lasix. In setting of RSV infection as well. Continue lisinopril and carvedilol. Due to diuresis. Potassium today is 3.6. Will replace with 40 mEq p.o. potassium chloride x1. (3) Elevated troponin: Code(s): R79.89 - Other specified abnormal findings of blood chemistry Status: Acute Assessment and Plan: Mildly elevated. EKG without ischemic changes. No chest pain. Not ACS (4) HTN (hypertension): Code(s): I10 - Essential (primary) hypertension Status: Chronic Assessment and Plan: Continue home antihypertensives. (5) T2DM (type 2 diabetes mellitus): Code(s): E11.9 - Type 2 diabetes mellitus without complications Status: Chronic Assessment and Plan: Management as per primary team. (6) Coronary artery disease: Code(s): I25.10 - Atherosclerotic heart disease of [place] coronary artery without angina pectoris Status: Acute Assessment and Plan: Stable. Continue home ASA and statin. Subjective Date/time seen: 07/09/24 11:36 Interval history: 84-year-old admitted for shortness of breath, RSV infection Date of service 07/09/2024: Feels very good today. Wants to go home. No chest pain or shortness of breath. Review of Systems Review of Systems: All systems reviewed & are unremarkable except as noted in HPI and below Constitutional: Constitutional: Denies body ache(s) Eyes: Eyes: Denies blurry vision ENT: Reports Normal hearing present Cardiovascular: Cardiovascular: Denies chest pain Respiratory: Respiratory: Denies dyspnea Gastrointestinal: Gastrointestinal: Denies abdominal pain Genitourinary: Genitourinary: Denies hematuria Musculoskeletal: Musculoskeletal: Denies back pain Integumentary/Breasts: Skin/Breast: Denies dry skin Neurologic: Denies Abnormal speech present Psychiatric: Psychiatric: Denies anxiety Endocrine: Endocrine: Denies change in body appearance Hematologic/Lymphatic: Hematologic/Lymphatic: Denies easy bleeding Allergic/Immunologic: Allergic/Immunologic: Denies GI upset with certain foods Exam Const: General: comfortable and no acute distress HENMT: Mouth: Yes moist mucous membranes Eyes: General: appearance normal, both eyes and all related structures Sclera: sclerae normal Neck: Neck: No no JVD Resp: Effort & Inspection: normal respiratory effort Auscultation: clear to auscultation bilaterally Cardio: Rate: regular rate Rhythm: regular rhythm Heart sounds: no murmurs Skin: General skin exam: normal color Neuro: Speech: normal speech Psych: Mental Status: mental status grossly normal Affect: normal affect Objective Data Vital Signs Vital Signs: Vital Signs - 24 hr 07/08/24 12:13 07/08/24 12:19 07/08/24 12:57 Temperature 36.9 C Pulse Rate 76 81 Respiratory Rate 13 14 Blood Pressure 156/60 H 160/88 H Pulse Oximetry 94 94 100 Oxygen Delivery Room Air 07/08/24 13:15 07/08/24 13:10 07/08/24 13:19 Temperature 37.2 C Pulse Rate 80 82 80 Respiratory Rate 20 20 18 Blood Pressure 157/52 H Pulse Oximetry 100 Oxygen Delivery 07/08/24 15:27 07/08/24 14:00 07/08/24 16:00 Temperature 37.5 C Pulse Rate 77 73 73 Respiratory Rate 20 Blood Pressure 140/61 Pulse Oximetry 96 Oxygen Delivery 07/08/24 16:00 07/08/24 18:00 07/08/24 20:15 Temperature 37.0 C Pulse Rate 85 80 Respiratory Rate 20 Blood Pressure 197/78 H Pulse Oximetry 96 98 Oxygen Delivery Room Air 07/08/24 20:00 07/08/24 20:00 07/08/24 21:06 Temperature Pulse Rate 79 Respiratory Rate Blood Pressure 193/77 H Pulse Oximetry Oxygen Delivery Room Air 07/08/24 21:13 07/08/24 22:00 07/08/24 22:15 Temperature Pulse Rate 79 73 Respiratory Rate Blood Pressure 187/74 H Pulse Oximetry Oxygen Delivery 07/08/24 23:09 07/08/24 23:52 07/09/24 00:00 Temperature 37.2 C Pulse Rate 66 64 Respiratory Rate 18 Blood Pressure 161/60 H Pulse Oximetry 95 Oxygen Delivery Room Air 07/09/24 02:00 07/09/24 04:00 07/09/24 04:32 Temperature 36.7 C Pulse Rate 75 70 Respiratory Rate 18 Blood Pressure 164/64 H Pulse Oximetry 96 Oxygen Delivery Room Air 07/09/24 04:00 07/09/24 06:00 07/09/24 08:00 Temperature Pulse Rate 66 60 75 Respiratory Rate Blood Pressure Pulse Oximetry Oxygen Delivery 07/09/24 08:00 07/09/24 08:41 07/09/24 08:52 Temperature 36.8 C Pulse Rate 73 77 Respiratory Rate 20 Blood Pressure 158/72 H Pulse Oximetry 97 93 Oxygen Delivery Room Air 07/09/24 08:00 Temperature Pulse Rate Respiratory Rate Blood Pressure Pulse Oximetry 93 Oxygen Delivery Room Air Intake/Output Intake/Output: Intake & Output 07/06/24 07/07/24 07/08/24 07/09/24 23:59 23:59 23:59 23:59 Intake Total 120 700 Output Total 1750 Balance -1630 700 Meds/Results Medications: Active Medications Generic Name Dose Route Start Last Admin Trade Name Freq PRN Reason Stop Dose Admin Acetaminophen 650 mg 07/08/24 12:09 Acetaminophen 325 Mg Tablet PO Q4H PRN Mild Pain (1-3) or Fever Aspirin 81 mg 07/09/24 08:00 07/09/24 08:51 Aspirin 81 Mg Chewable Tablet PO 81 mg DAILY@0800 ALIX Administration Carvedilol 6.25 mg 07/08/24 21:00 07/09/24 08:52 Carvedilol 6.25 Mg Tablet PO 6.25 mg Q12HR ALIX Administration Dextrose 12.5 gm 07/08/24 12:46 Dextrose 50% 25 Gm/50 Ml Syringe IV PUSH PRN PRN Hypoglycemia Protocol Enoxaparin Sodium 40 mg 07/09/24 09:00 07/09/24 08:55 Enoxaparin 40 Mg/0.4 Ml Syringe SUB-Q Not Given DAILY ALIX Glucagon 1 mg 07/08/24 12:46 Glucagon For Inj 1 Mg Vial IM PRN PRN Hypoglycemia Protocol Glucose 15 gm 07/08/24 12:46 Glucose Oral Gel 15 Gm Of Glucse In 37.5 Gm Tube PO PRN PRN Hypoglycemia Protocol Guaifenesin/Dextromethorphan 10 ml 07/08/24 22:39 07/08/24 22:51 Guaifenesin/Dextromethorphan 10 Ml Udc PO 10 ml Q4H PRN Administration Cough Dextrose 1,000 mls @ 100 mls/hr 07/08/24 12:46 Dextrose 5% 1,000 Ml IVPB PRN PRN Hypoglycemia Protocol Insulin Aspart 2 - 5 units 07/08/24 17:00 07/09/24 08:52 Insulin Aspart (*Bkc) 100 Units/Ml SUB-Q 3 units TIDWM ALIX Administration Protocol Insulin Aspart 1 - 2 units 07/08/24 21:00 07/08/24 21:13 Insulin Aspart (*Bkc) 100 Units/Ml SUB-Q 1 units HS ALIX Administration Protocol Lisinopril 10 mg 07/09/24 09:00 07/09/24 08:55 Lisinopril 10 Mg Tablet PO 10 mg DAILY ALIX Administration Methylprednisolone Sodium Succinate 40 mg 07/09/24 09:00 07/09/24 08:50 Methylprednisolone Sod Succ 40 Mg Vial IV PUSH 40 mg DAILY ALIX Administration Multivitamins Therapeutic 1 tablet 07/09/24 09:00 07/09/24 08:52 Multivitamins Therapeutic Tab (*Bkc) PO 1 tablet DAILY ALIX Administration Ondansetron HCl 4 mg 07/08/24 12:09 Ondansetron Inj 4 Mg/2 Ml Vial IV PUSH Q4H PRN Nausea Perflutren Lipid Microsphere 0 ml 07/08/24 12:38 Perflutren Lipid Microspheres 1.5 Ml Vial Diluted To 10 Ml Total Volume IV PUSH 07/11/24 12:38 ONCE PRN adequate visualization Protocol Rosuvastatin Calcium 10 mg 07/09/24 09:00 07/09/24 08:52 Rosuvastatin 10 Mg Tablet PO 10 mg DAILY ALIX Administration Vitamin D 1,000 units 07/09/24 09:00 07/09/24 08:50 Cholecalciferol 1,000 Units Tablet PO 1,000 units DAILY ALIX Administration Radiology Results: ITS Impressions Chest X-Ray 07/08/24 09:40 Impression: 1: Mild interstitial edema. Labs Labs: Laboratory Results - last 24 hr 07/08/24 07/08/24 07/08/24 13:04 15:14 16:25 WBC RBC Hgb Hct MCV MCH MCHC RDW Plt Count MPV Immature Gran % (Auto) Neut % (Auto) Lymph % (Auto) [place] % (Auto) Eos % (Auto) Baso % (Auto) Lymph # (Auto) [place] # (Auto) Eos # (Auto) Baso # (Auto) Abs Immat Gran (auto) Absolute Neuts (auto) Absolute Nucleated RBC Nucleated RBC % Sodium Potassium Chloride Carbon Dioxide Anion Gap BUN Creatinine Estim Creat Clear Calc Estimated GFR Glucose POC Capillary Glucose 243 H Hemoglobin A1c 7.1 H Calcium Total Bilirubin AST ALT Alkaline Phosphatase Troponin I 0.195 H* D 0.182 H* Total Protein Albumin Vitamin B12 Folate TSH 1.990 07/08/24 07/08/24 07/09/24 20:08 21:30 04:11 WBC 5.6 RBC 3.96 L Hgb 11.6 L Hct 36.8 L MCV 92.9 MCH 29.3 MCHC 31.5 L RDW 12.7 Plt Count 125 L MPV 12.1 H Immature Gran % (Auto) 0.5 Neut % (Auto) 88.2 H Lymph % (Auto) 8.8 L [place] % (Auto) 2.5 L Eos % (Auto) 0.0 Baso % (Auto) 0.0 L Lymph # (Auto) 0.49 L [place] # (Auto) 0.1 Eos # (Auto) 0.0 Baso # (Auto) 0.0 Abs Immat Gran (auto) 0.03 Absolute Neuts (auto) 4.9 Absolute Nucleated RBC 0.000 Nucleated RBC % 0.0 Sodium 136 L Potassium 3.6 Chloride 98 Carbon Dioxide 27 Anion Gap 11 BUN 20 H Creatinine 0.80 Estim Creat Clear Calc Not Reportable Estimated GFR > 60 Glucose 238 H POC Capillary Glucose 203 H Hemoglobin A1c Calcium 8.5 Total Bilirubin 0.7 AST 41 H ALT 39 H Alkaline Phosphatase 71 Troponin I Total Protein 7.0 Albumin 3.7 Vitamin B12 > 1000.0 H Folate > 20.0 H TSH 07/09/24 07:36 WBC RBC Hgb Hct MCV MCH MCHC RDW Plt Count MPV Immature Gran % (Auto) Neut % (Auto) Lymph % (Auto) [place] % (Auto) Eos % (Auto) Baso % (Auto) Lymph # (Auto) [place] # (Auto) Eos # (Auto) Baso # (Auto) Abs Immat Gran (auto) Absolute Neuts (auto) Absolute Nucleated RBC Nucleated RBC % Sodium Potassium Chloride Carbon Dioxide Anion Gap BUN Creatinine Estim Creat Clear Calc Estimated GFR Glucose POC Capillary Glucose 255 H Hemoglobin A1c Calcium Total Bilirubin AST ALT Alkaline Phosphatase Troponin I Total Protein Albumin Vitamin B12 Folate TSH
[2024-07-09 11:54] LABS: Glucose Point of Care 291 mg/dl (65-105)
[2024-07-09] MEDS: POTASSIUM CHLORIDE 20 MEQ ER TABLET 40 MEQ PO (12:16)
== END 2024-07-09 13:44 | disposition home or self-care (01) ==
LOC: ANHED 12:14 → ANHIMU 12:51
PROVIDERS: Nurse Practitioner Acute Care; Student in an Organized Health Care Education/Training Program; Admitting Provider Internal Medicine; Emergency Provider Physician Assistant; PCP Internal Medicine; Visit Provider Internal Medicine
DX: J20.5 Acute bronchitis due to respiratory syncytial virus (principal); I11.0 Hypertensive heart disease with heart failure; I50.20 Unspecified systolic (congestive) heart failure; I25.5 Ischemic cardiomyopathy; I25.10 Atherosclerotic heart disease of native coronary artery without angina pectoris; I25.2 Old myocardial infarction; R79.89 Other specified abnormal findings of blood chemistry; D69.6 Thrombocytopenia, unspecified; C44.609 Unspecified malignant neoplasm of skin of left upper limb, including shoulder; E11.9 Type 2 diabetes mellitus without complications; N32.81 Overactive bladder; Z20.822 Contact with and (suspected) exposure to COVID-19; Z79.84 Long term (current) use of oral hypoglycemic drugs; Z79.82 Long term (current) use of aspirin; Z79.899 Other long term (current) drug therapy; Z85.3 Personal history of malignant neoplasm of breast; Z98.890 Other specified postprocedural states
CPT/HCPCS: 36415; 71046; 80053; 82525; 82607; 82746; 82948; 83036; 83880; 84443; 84484; 85025; 85055; 87637; 93005; 93306; 94640; 96374; 99285; A9270; G0378; J1815; J1940; J2919

== ENCOUNTER 2024-07-20 09:27 | Outpatient (CLI) | payer MEDICARE, SELFPAY ==
--- NOTE | ~2024-07-20 | XR_ITS ---
XR chest 2V Ordering provider: Ry Cruz, History: 84 years Female with . PERSISTANT COUGH, RSV X 2 WEEKS AGO . Comparison: None. FINDINGS: MEDIASTINUM: The cardiac silhouette is not enlarged. LUNGS: No effusions or pneumothorax. Opacification in the left lower lobe area suggestive of atelecta sis versus pneumonia. OTHER: No free air under the diaphragm. degenerative changes of the spine. levoscoliosis. IMPRESSION: Left lower lobe pneumonia. Reviewed, dictated and finalized at location A. [employer]G MACHINE [employer]PER[employer] IMPRESSION: Left lower lobe pneumonia.
== END 2024-07-20 09:28 | disposition home or self-care (01) ==
PROVIDERS: PCP Internal Medicine; Visit Provider Internal Medicine
DX: R05.9 Cough, unspecified (principal); Z87.09 Personal history of other diseases of the respiratory system
CPT/HCPCS: 71046